=== PATIENT | female | born 1955 | race Caucasian/White ===

== ENCOUNTER 2020-07-13 15:10 | Outpatient (REF) | payer OTHER, SELFPAY ==
[2020-07-13 16:44] LABS: MANUAL DIFF FLAG NO
[2020-07-13 16:54] LABS: Basophils Absolute Auto 0.1 X10*3/uL (0.0-0.2); Basophils Percent Auto 0.7 % (0-2); Eosinophils Absolute Auto 0.3 X10*3/uL (0.0-0.4); Eosinophils Percent Auto 3.1 % (0-4); Hematocrit 51.4 % (37-47); Hemoglobin 16.3 g/dl (12.0-16.0); Imm Gran Abs Auto 0.27 X10*3/uL (0.00-0.03); Imm Gran Pct Auto 3.1 % (0.0-0.4); Lymphocytes Absolute Auto 1.6 X10*3/uL (1.2-4.9); Lymphocytes Percent Auto 18.7 % (20-40); Mean Corpuscular HGB Conc 31.7 g/dl (31.0-35.0); Mean Corpuscular Volume 94.7 fL (80-98); Mean Platelet Volume 9.8 fL (9.4-12.3); Monocytes Absolute Auto 0.6 X10*3/uL (0.1-1.2); Monocytes Percent Auto 6.7 % (2-11); Neutrophils Absolute Auto 5.9 X10*3/uL (2.0-8.3); Neutrophils Percent Auto 67.7 % (45-73); Platelet Count 364 X10*3/uL (160-400); Red Blood Count 5.43 X10*6/uL (4.20-5.50); Red Cell Distribution Width 14.1 % (11.0-16.0); White Blood Count 8.7 X10*3/uL (4.8-10.8)
[2020-07-13 17:00] LABS: D Dimer 756 NG/ML
[2020-07-13 17:34] LABS: B Type Natriuretic Peptide 173 pg/mL (<100)
[2020-07-13 17:51] LABS: Erythrocyte Sedimentation Rate 2 MM/HR (0-20)
[2020-07-14 09:21] LABS: Immunoglobulin E 57 kU/L (<OR=114)
[2020-07-15 04:41] LABS: SARS COV2 IgG Negative (Negative)
== END 2020-07-13 15:11 | disposition home or self-care (01) ==
LOC: HO.LAB 15:10
PROVIDERS: PCP Family Medicine; Visit Provider Hospitalist
DX: J18.9 Pneumonia, unspecified organism (principal); J96.01 Acute respiratory failure with hypoxia; J45.40 Moderate persistent asthma, uncomplicated; Z20.822 Contact with and (suspected) exposure to COVID-19
CPT/HCPCS: 36415; 82785; 83880; 84484; 85025; 85379; 85652; 86769

== ENCOUNTER 2020-07-14 19:09 | Emergency (ER) | payer OTHER, SELFPAY ==
--- NOTE | ~2020-07-14 | CT_ITS ---
EXAMINATION: CT ANGIOGRAM OF THE CHEST WITH AND WITHOUT CONTRAST (CT PULMONARY ANGIOGRAM FOR PE) CLINICAL INFORMATION: Reason for Exam Shortness of breath elevated D-dimer COMPARISON: None TECHNIQUE: Prior to contrast administration, noncontrast localization images were obtained. Subsequently, multidetector volumetric imaging was performed from the thoracic inlet to below the diaphragms following the administration of 71 mL Omnipaque 350 intravenous contrast. No contrast reaction reported Sagittal, coronal, and MIP oblique sagittal reformatted images were obtained on the CT workstation, uploaded to PACS, and reviewed. This CT examination was performed using dose optimization techniques as appropriate, variously including the following: *Automated exposure control *Adjustment of mA and/or kV according to patient size (this includes techniques or standardized protocols for targeted exams where dose is matched to indication/reason for exam; i.e. extremities or head) *Use of iterative reconstruction technique Total exam dose-length product 447 mGy-cm FINDINGS: QUALITY OF STUDY/CONTRAST BOLUS: Satisfactory. PULMONARY ARTERIES: No central or segmental pulmonary emboli. THORACIC AORTA: No aneurysm or dissection. LUNG: Somewhat diffuse nonspecific groundglass changes are present in the lungs. Bandlike atelectasis/infiltrate is present at the right lung base (7:223). Left lower lobe patchy consolidation is present (7:290). Some small nodular densities are seen none larger than 6 mm (right lower lobe 7:175 and 234) PLEURA: No pleural effusion or pneumothorax. MEDIASTINUM: Normal heart size. Coronary calcifications are present. No pericardial effusion. No hilar or mediastinal lymphadenopathy. No evidence of septal bowing or right heart strain. CHEST WALL/AXILLA: No axillary or internal mammary lymphadenopathy. OSSEOUS STRUCTURES: No acute or suspicious osseous abnormality. Degenerative changes present in the spine. UPPER ABDOMEN: Unremarkable. No reflux of contrast into the hepatic veins to suggest elevated right heart pressures. CT/CT angio chest PE protocol IMPRESSION: 1. No evidence of pulmonary emboli. 2. Nonspecific groundglass changes in the lungs with bilateral lower lobe infiltrates/atelectasis. VTE: negative
[2020-07-14 19:45] VITALS: BP 158/69; PULSE 67; RESP 20; TEMP 36.4; O2SAT 96; BMI 55.3
--- NOTE | 2020-07-14 21:10 | ED.GENADULT ---
HPI - General Adult General Chief complaint: General Medical Stated complaint: abnormal labs Time Seen by Provider: 07/14/20 21:10 Source: patient Mode of arrival: ambulatory Limitations: no limitations History of Present Illness HPI narrative: Patient's history of COPD ex-smoker sent by her automation application engineer for elevated D-dimer for CTA chest as outpatient but patient missed the appointment and came to the ER. Patient admitted 2 weeks ago at [facility] for hypoxia 85% on walking was treated for bronchitis and COPD and was given Augmentin. Labs done yesterday showed troponin of 6 BNP of 173 repeat troponin today is 8.9 D-dimer was 756 patient does have leg swelling without any significant pain Patient complaining of dry cough occasionally with shortness of breath especially on exertion for last few days no chest pain Related Data Home Medications Medication Instructions Recorded Confirmed albuterol sulfate 90 mcg/actuation 2 puff INHALATION Q2-4H PRN 07/13/20 07/13/20 aerosol inhaler atorvastatin 20 mg tablet 20 mg PO DAILY 07/13/20 07/13/20 calcitriol 0.25 mcg capsule 0.25 mcg PO DAILY 07/13/20 07/13/20 cholecalciferol (vitamin D3) 50 50 mcg PO DAILY 07/13/20 07/13/20 mcg (2,000 unit) capsule fexofenadine 180 mg tablet 180 mg PO DAILY 07/13/20 07/13/20 furosemide 20 mg tablet 20 mg PO DAILY 07/13/20 07/13/20 losartan 50 mg tablet 50 mg PO DAILY 07/13/20 07/13/20 mometasone-formoterol HFA 200 2 puff PO BID 07/13/20 07/13/20 mcg-5 mcg/actuation aerosol inhaler prednisone 10 mg tablet 10 mg PO BID 07/13/20 07/13/20 prednisone 5 mg tablet mg PO 07/13/20 07/13/20 umeclidinium 62.5 mcg/actuation 1 inh PO DAILY 07/13/20 07/13/20 blister powder for inhalation Allergies Allergy/AdvReac Type Severity Reaction Status Date / Time amoxicillin [From Augmentin] Allergy Severe Rash Verified 07/13/20 15:59 ciprofloxacin [From Cipro] Allergy Severe Cramping Verified 07/13/20 15:59 clavulanic acid Allergy Severe Rash Verified 07/13/20 15:59 [From Augmentin] levofloxacin [Levaquin] Allergy Severe Cramping Verified 07/13/20 15:59 moxifloxacin [From Avelox] Allergy Severe Cramping Verified 07/13/20 15:59 Penicillins Allergy Severe Rash Verified 07/13/20 15:59 Review of Systems Review of Systems: Constitutional : No Weight loss, No Fever, No Chills ENT/Mouth : No sore throat, No Rhinorrhea Eyes: No Eye Pain, No Swelling Cardiovascular : No Chest Pain, no palpitations Respiratory : No Cough, No Sputum, + shortness of breath Gastrointestinal : no Nausea, No Vomiting, No Diarrhea, No abdominal Pain, no black stools Genitourinary : No Dysuria, No Urinary Frequency Musculoskeletal : No joint pain, No Myalgias, No Joint Swelling Skin : No Skin Lesions, No rash Neuro : No Weakness, No Numbness, No Dizziness, No Headache Psych : No Anxiety/Panic, No Depression Heme/Lymph: No Bruising, No Lymphadenopathy Endocrine : No Polyuria, No Polydipsia All other systems reviewed and are negative [facility] Past Medical History Medical History Asthma Pneumonia Social History Social History Smoking Status: Former smoker Tobacco Type: Cigarette Advance Directives: No Advance Directives Information Provided: Yes Patient : No Physical Exam Vital Signs: Vital Signs: Last Vital Signs Temp 97.7 F 07/14/20 22:49 Pulse 72 07/14/20 22:49 Resp 18 07/14/20 22:49 BP 148/71 H 07/14/20 22:49 Pulse Ox 94 07/14/20 22:49 Body Mass Index 55.3 Appearance: Alert. Oriented X3. No acute distress. Obese Eyes: PERRLA, No Nystagmus ENT: Pharynx normal. Oral Mucosa moist Neck: Normal inspection. Neck supple. CVS: Normal heart rate and rhythm. Pulses normal. Respiratory: No respiratory distress. Equal air entry bilateral, no wheezing/rales/rhonchi prolonged expiration Abdomen: Soft and nontender. Bowel sounds are present, no mass palpable, no CVA tenderness Skin: Skin warm and dry. Normal skin color. Normal skin turgor. Extremities: 2+ lower extremity edema. No calf tenderness Neuro: Oriented X 3. No motor deficit. No sensory deficit.No cerebellar signs , cranial nerves II-XII intact Medical Decision Making MDM Narrative Medical decision making narrative: Patient with chronic COPD with elevated D-dimer will check CTA chest to rule out PE for chronic shortness of breath Patient's CT chest negative for PE will discharge patient home Lab Data Lab results reviewed: Yes I reviewed the patient's lab results. Result diagrams: 07/14/20 21:07/14/20 21: Labs: Lab Results 07/14/20 07/14/20 07/14/20 Range/Units 21:22 21: 21:22 WBC 9.6 (4.8-10.8) X10*3/uL RBC 5.17 (4.20-5.50) X10*6/uL Hgb 15.6 (12.0-16.0) g/dl Hct 49.0 H (37-47) % MCV 94.8 (80-98) fL MCH 30.2 (27.0-33.0) pg MCHC 31.8 (31.0-35.0) g/dl RDW 14.3 (11.0-16.0) % Plt Count 331 (160-400) X10*3/uL MPV 9.7 (9.4-12.3) fL Immature Gran % (Auto) 1.2 H (0.0-0.4) % Neut % (Auto) 68.1 (45-73) % Lymph % (Auto) 20.9 (20-40) % Dillon % (Auto) 6.8 (2-11) % Eos % (Auto) 2.6 (0-4) % Baso % (Auto) 0.4 (0-2) % Lymph # (Auto) 2.0 (1.2-4.9) X10*3/uL Dillon # (Auto) 0.7 (0.1-1.2) X10*3/uL Eos # (Auto) 0.3 (0.0-0.4) X10*3/uL Baso # (Auto) 0.0 (0.0-0.2) X10*3/uL Abs Immat Gran (auto) 0.12 H (0.00-0.03) X10*3/uL Absolute Neuts (auto) 6.6 (2.0-8.3) X10*3/uL Absolute Nucleated RBC 0.000 (0.0-0.012) X10*3/uL Nucleated RBC % (auto) 0.0 (0.0-0.2) /100WBC PT 10.7 L (10.8-13.0) SEC INR 0.9 (0.9-1.1) APTT 26.8 (24.1-38.0) SEC Sodium 141 (135-145) mmol/L Potassium 4.6 (3.3-5.1) mmol/L Chloride 102 (96-108) mmol/L Carbon Dioxide 30 H (22-29) mmol/L Anion Gap 14 (12-20) BUN 27 H (9-16) mg/dL Creatinine 1.24 (0.5-1.4) mg/dL Estim Creat Clear Calc 63.7 Estimated GFR 44 Random Glucose 233 H (60-115) mg/dL Calcium 9.3 (8.4-10.2) mg/dL Troponin I High Sens (<3.5-17.0) ng/L Urine Color Urine Appearance Urine pH (5.0-8.0) Ur Specific [place] (1.005-1.025) Urine Protein (NEG-TRACE) MG/DL Urine Glucose (UA) (NEG) MG/DL Urine Ketones (NEG) MG/DL Urine Blood (NEG) Urine Nitrite (NEG) Ur Leukocyte Esterase (NEG) Urine RBC (0) /HPF Urine WBC (0-4) /HPF Ur Squamous Epith Cells /LPF Urine Bacteria /LPF 07/14/20 07/14/20 Range/Units 21:22 21:56 WBC (4.8-10.8) X10*3/uL RBC (4.20-5.50) X10*6/uL Hgb (12.0-16.0) g/dl Hct (37-47) % MCV (80-98) fL MCH (27.0-33.0) pg MCHC (31.0-35.0) g/dl RDW (11.0-16.0) % Plt Count (160-400) X10*3/uL MPV (9.4-12.3) fL Immature Gran % (Auto) (0.0-0.4) % Neut % (Auto) (45-73) % Lymph % (Auto) (20-40) % Dillon % (Auto) (2-11) % Eos % (Auto) (0-4) % Baso % (Auto) (0-2) % Lymph # (Auto) (1.2-4.9) X10*3/uL Dillon # (Auto) (0.1-1.2) X10*3/uL Eos # (Auto) (0.0-0.4) X10*3/uL Baso # (Auto) (0.0-0.2) X10*3/uL Abs Immat Gran (auto) (0.00-0.03) X10*3/uL Absolute Neuts (auto) (2.0-8.3) X10*3/uL Absolute Nucleated RBC (0.0-0.012) X10*3/uL Nucleated RBC % (auto) (0.0-0.2) /100WBC PT (10.8-13.0) SEC INR (0.9-1.1) APTT (24.1-38.0) SEC Sodium (135-145) mmol/L Potassium (3.3-5.1) mmol/L Chloride (96-108) mmol/L Carbon Dioxide (22-29) mmol/L Anion Gap (12-20) BUN (9-16) mg/dL Creatinine (0.5-1.4) mg/dL Estim Creat Clear Calc Estimated GFR Random Glucose (60-115) mg/dL Calcium (8.4-10.2) mg/dL Troponin I High Sens 8.9 (<3.5-17.0) ng/L Urine Color YELLOW Urine Appearance CLEAR Urine pH 5.5 (5.0-8.0) Ur Specific Nor[place] >= 1.030 H (1.005-1.025) Urine Protein NEG (NEG-TRACE) MG/DL Urine Glucose (UA) 100 H (NEG) MG/DL Urine Ketones NEG (NEG) MG/DL Urine Blood NEG (NEG) Urine Nitrite NEG (NEG) Ur Leukocyte Esterase NEG (NEG) Urine RBC 0 (0) /HPF Urine WBC 0 (0-4) /HPF Ur Squamous Epith Cells 1+ /LPF Urine Bacteria TRACE /LPF ECG Data Attestation: I personally reviewed and interpreted this ECG as follows: Interpretation: Normal sinus rhythm heart rate 86 beats per minute with frequent PVCs left anterior fascicular block no acute ischemic changes normal intervals Discharge Plan Discharge Clinical Impression: Blood D-dimer assay positive Patient Disposition: Home, Self-Care Instructions: COPD (Chronic Obstructive Pulmonary Disease) (ED) Additional Instructions: Follow-up with your automation application engineer Your CT scan chest is negative for blood clots Prescriptions: No Action prednisone 5 mg tablet PO RF: 0 furosemide 20 mg tablet 20 mg PO DAILY RF: 0 prednisone 10 mg tablet 10 mg PO BID RF: 0 atorvastatin 20 mg tablet 20 mg PO DAILY RF: 0 albuterol sulfate 90 mcg/actuation HFA aerosol inhaler 2 puff inhalation Q2-4H PRNRF: 0 Incruse Ellipta 62.5 mcg/actuation blister with device 1 inh PO DAILY RF: 0 Dulera 200-5 mcg/actuation HFA aerosol inhaler 2 puff PO BID RF: 0 losartan 50 mg tablet 50 mg PO DAILY RF: 0 calcitriol 0.25 mcg capsule 0.25 mcg PO DAILY RF: 0 cholecalciferol (vitamin D3) 50 mcg (2,000 unit) capsule 50 mcg PO DAILY RF: 0 fexofenadine [Reina Allergy] 180 mg tablet 180 mg PO DAILY RF: 0 Interventions: ED Discharge Assessment Last Done: 07/14/20 23:37 Discharge Date/Time: 07/14/20 23:39
--- NOTE | 2020-07-14 21:13 | ECG_ITS ---
Test Reason : SOB Blood Pressure : / mmHG Vent. Rate : 086 BPM Atrial Rate : 086 BPM P-R Int : 120 ms QRS Dur : 096 ms QT Int : 384 ms P-R-T Axes : 058 -68 047 degrees QTc Int : 459 ms Sinus rhythm with frequent Premature ventricular complexes Biatrial enlargement Abnormal ECG When compared with ECG of 22-MAY-2008 09:39, Premature ventricular complexes are now Present Referred By: Alberto Roche Electronically Signed By:WILIAN LAMA
[2020-07-14 21:27] LABS: MANUAL DIFF FLAG NO
[2020-07-14 21:29] LABS: Basophils Percent Auto 0.4 % (0-2); Eosinophils Absolute Auto 0.3 X10*3/uL (0.0-0.4); Eosinophils Percent Auto 2.6 % (0-4); Hemoglobin 15.6 g/dl (12.0-16.0); Imm Gran Abs Auto 0.12 X10*3/uL (0.00-0.03); Imm Gran Pct Auto 1.2 % (0.0-0.4); Lymphocytes Percent Auto 20.9 % (20-40); Mean Corpuscular HGB Conc 31.8 g/dl (31.0-35.0); Mean Corpuscular Hemoglobin 30.2 pg (27.0-33.0); Mean Corpuscular Volume 94.8 fL (80-98); Mean Platelet Volume 9.7 fL (9.4-12.3); Monocytes Absolute Auto 0.7 X10*3/uL (0.1-1.2); Monocytes Percent Auto 6.8 % (2-11); Neutrophils Absolute Auto 6.6 X10*3/uL (2.0-8.3); Neutrophils Percent Auto 68.1 % (45-73); Platelet Count 331 X10*3/uL (160-400); Red Blood Count 5.17 X10*6/uL (4.20-5.50); Red Cell Distribution Width 14.3 % (11.0-16.0); White Blood Count 9.6 X10*3/uL (4.8-10.8)
[2020-07-14 21:34] LABS: INTERNATIONAL NORM RATIO 0.9 (0.9-1.1); Prothrombin Time 10.7 SEC (10.8-13.0)
--- NOTE | 2020-07-14 21:36 | PC.NURSE ---
Patient out of bed to bathroom, urine specimen collected and sent for analysis. EKG being obtained at this time by LORETTA Carrera. aware. IV access established in right AC. Awaiting bloodwork results prior to CT scan. Pt reports I have a GFR of 50%, and my last Creatinine was 1.2 which is good for me. I've never had issues with IV dye before . aware.
[2020-07-14 21:37] LABS: Partial Thromboplastin Time 26.8 SEC (24.1-38.0)
[2020-07-14 21:57] LABS: Anion Gap 14 (12-20); Blood Urea Nitrogen 27 mg/dL (9-16); Calcium 9.3 mg/dL (8.4-10.2); Carbon Dioxide 30 mmol/L (22-29); Chloride 102 mmol/L (96-108); Creatinine Clr Calc Pharmacy 63.7; Estimated Glomerular Filt Rate 44; Glucose Random 233 mg/dL (60-115); Potassium 4.6 mmol/L (3.3-5.1); Sodium 141 mmol/L (135-145)
[2020-07-14 22:02] LABS: Appearance Urine CLEAR; Color Urine YELLOW; Glucose Urine UA 100 MG/DL (NEG); Leukocyte Esterase Urine NEG (NEG); Nitrite Urine NEG (NEG); PH 5.5 (5.0-8.0); Specific Gravity - Urine >= 1.030 (1.005-1.025); Urine Blood NEG (NEG); Urine Ketones NEG (NEG); Urine Protein NEG (NEG-TRACE)
[2020-07-14 22:04] LABS: Troponin-I High Sensitivity 8.9 ng/L (<3.5-17.0)
[2020-07-14 22:08] LABS: Bacteria Urine TRACE /LPF; RBC Urine 0 /HPF (0); Squamous Epithelial Cell Urine 1+ /LPF; WBC Urine 0 /HPF (0-4)
[2020-07-14] MEDS: iohexoL 350 MG/ML 100 ML INFUS..BTL IV (22:34)
[2020-07-14 22:49] VITALS: BP 148/71; PULSE 72; RESP 18; TEMP 36.5; O2SAT 94
== END 2020-07-14 23:39 | disposition home or self-care (01) ==
PROVIDERS: Emergency Provider Internal Medicine; PCP Family Medicine
DX: J44.9 Chronic obstructive pulmonary disease, unspecified (principal); R79.89 Other specified abnormal findings of blood chemistry; F17.210 Nicotine dependence, cigarettes, uncomplicated; Z71.6 Tobacco abuse counseling; Z79.899 Other long term (current) drug therapy
CPT/HCPCS: 36415; 71275; 80048; 81001; 84484; 85025; 85610; 85730; 93005; 99283; Q9967

== ENCOUNTER → 2020-08-06 14:56 | Outpatient (BNVA) | payer OTHER, SELFPAY | PROVIDERS: PCP Family Medicine; Visit Provider Hospitalist ==

== ENCOUNTER 2020-11-25 08:00 | Outpatient (REF) | payer OTHER, SELFPAY ==
--- NOTE | ~2020-11-25 | FL_ITS ---
EXAMINATION: FL BARIUM SWALLOW CLINICAL INFORMATION: Gastroesophageal reflux disease without esophagitis. COMPARISON: CT chest 07/14/2020. TECHNIQUE: Barium swallow examination is performed using fluoroscopic evaluation in addition to multiple fluoroscopic spot views. The patient is imaged both upright and prone and using both thick and thin sulfate along with effervescent granules. Fluoroscopy time: 1 minute 6 seconds. DAP: 32.059 Gycm2 Images: 47 FINDINGS: Following oral administration of thick barium and barium-coated turkey in upright view, there is normal propagation of bolus from the oral cavity, pharynx and esophagus into stomach without any evidence of obstruction, narrowing or stricture. On placing patient in right lateral decubitus lying view and oral administration of thin barium, there is good opacification of the entire expanded esophagus without any intraluminal filling defect. There is no reflux seen at this time. However, there is a small sliding hiatal hernia visualized. Visualized stomach is unremarkable. There are surgical dion in the right upper quadrant from previous cholecystectomy. FL/FL barium swallow IMPRESSION: Small hiatal hernia. No gastroesophageal reflux could be demonstrated at this time. The esophagus is otherwise unremarkable.
[2020-11-25 08:54] LABS: D Dimer < 200 NG/ML
== END 2020-11-25 08:01 | disposition home or self-care (01) ==
LOC: HO.XRAY 08:00
PROVIDERS: PCP Family Medicine; Visit Provider Hospitalist
DX: K21.9 Gastro-esophageal reflux disease without esophagitis (principal); R79.89 Other specified abnormal findings of blood chemistry; J18.9 Pneumonia, unspecified organism
CPT/HCPCS: 36415; 74220; 85379

== ENCOUNTER → 2020-12-07 15:25 | Outpatient (BNVA) | payer OTHER, SELFPAY | PROVIDERS: PCP Family Medicine; Visit Provider Hospitalist ==

== ENCOUNTER 2022-11-03 15:40 | Outpatient (AMB) | payer OTHER, SELFPAY ==
[2022-11-03 15:44] VITALS: PULSE 90; O2SAT 94; BMI 55.8
--- NOTE | 2022-11-03 15:44 | MHC.OFFVIS ---
Intake Vital Signs 11/03/22 15:44 Height 5 ft 3 in Weight 315 lb 4.176 oz BMI 55.8 Pulse 90 Pulse Source Pulse Oximeter Pulse Oximetry (%) 94 Oxygen Delivery Method Room Air Intake Visit Reasons: CT Chest Results/Pulmonary Nodules Wooden Frame Builder Required: No Allergies amoxicillin [From Augmentin] Allergy (Severe, Verified 11/03/22 15:46) Rash ciprofloxacin [From Cipro] Allergy (Severe, Verified 11/03/22 15:46) Cramping clavulanic acid [From Augmentin] Allergy (Severe, Verified 11/03/22 15:46) Rash levofloxacin [Levaquin] Allergy (Severe, Verified 11/03/22 15:46) Cramping moxifloxacin [From Avelox] Allergy (Severe, Verified 11/03/22 15:46) Cramping Penicillins Allergy (Severe, Verified 11/03/22 15:46) Rash contrast dye Allergy (Severe, Uncoded 11/03/22 15:46) Blister HPI HPI Comments History of Present Illness Details The patient is a 67-year-old woman with a known history of asthma and significant allergies who was apparently in her usual state health until approximately 3 weeks ago when she suddenly developed shortness of breath while on to supermarket carrying some groceries. In addition to that she felt a low-grade temperature. She had been coughing but nonproductive. Denies chest pain. She was evaluated at the [facility] ED. I do not have the documentation at this time. In part of the workup she did have a CT scan of the chest PE protocol which demonstrated but appears to be a consolidation in the left lower lobe. There he was also found to be hypoxic and she required oxygen. She had a brief stay at [facility]. It is not clear if she received any antibiotics. She has numerous allergies. Ultimately she was discharged with a plan that she was going to start Augmentin as an outpatient. She took 3 doses of Augmentin developed a severe rash. But, not involving her palms no her mucous membranes. She was evaluated by her primary care doctor and also her white goods appliance tech. She was placed on a slow prednisone taper because of the severe rash. The rest is slowly getting better. She was then switched to Bactrim but she did not take can not because she still had the rash. And ultimately she was given a Z-Yariel for 5 days and she feels a little better from a cough standpoint and she has not had any more high temperatures. At no point did she have a temperature greater than 100. The patient has ultimately been discharged on oxygen. It is not clear if she had an ABG but the patient does state that her CO2 was normal. In the office we did undergo a 6 minutes walk test in the patient did desaturate down to 88% with activity suggesting that she still does need the oxygen supplementation with activity. Her symptoms initially were not consistent with pneumonia in the description on the CT scan they appear to be suggesting pneumonia but is not definitive based on their description. Patient has significant lower extremity edema and also has significant tachycardia during the 6 minutes walk test so therefore pulmonary vascular conditions need to be considered. Therefore she will have additional blood work today. Addendum: I did review her blood work and she did have a significantly elevated D-dimer above 700 which is very concerning. Patient is high risk for thromboembolic disease. In addition to that her brain atretic peptide is elevated which could be a negative prognostic finding is some but has thromboembolic disease but also get me that she is volume overloaded. Patient is already on diuretics. 08/06/2020 the patient is here for pulmonary follow-up visit. Since we last spoke she did undergo a CTA due to the fact that her D-dimer was significantly elevated. She did not have any evidence of any thromboembolic disease, however, she had bilateral lower lobe pneumonias. It appears to have progressed from her previous CT scan when she was at [facility] only demonstrating a left basilar infiltrate. This process likely an atypical bacteria organisms. Initially she was on doxycycline and then switched over to Augmentin briefly. Then she went in completed a course of azithromycin. There was a question of a penicillin allergy. However, it appears that the allergy was more to the contrast dye. She did see her white goods appliance tech and did require prolonged course of prednisone to treat the contrast induced allergic skin reaction which resulted in vesicles of her skin. But, not involving her mucous membranes. The patient did require oxygen supplementation during the last visit. At this point the patient will continue to have the oxygen until further evaluation. Patient is to use the oxygen with activity. 11/03/2022 The patient is here for a pulmonary follow-up visit. Overall the patient continues to do very well. She denies any significant shortness of breath. She has no longer using the oxygen. She continues to use her respiratory therapy. In the meantime she needs to maintain a reflux diet. The patient also continue to work with her weight management. The CT scan demonstrated stable findings. no new nodules. Overall, unchanged when compared to 2020. Continue current respiratory regimen. [facility] Medical History (Updated 01/15/22 @ 21:42 by Archie Coreas MD) Asthma Pneumonia Pulmonary nodule Social History (Updated 09/09/21 @ 15:42 by JESENIA Melchor) Patient Tobacco Use Status: Current everyday Tobacco user Tobacco use type: Cigarette Years Smoked: 17 Years Review of Systems Const Denies night sweats ENT Denies change in voice, Denies lip swelling, Denies mouth pain, Reports nasal congestion, Reports nasal discharge and Denies tongue swelling Card Denies chest pain, Reports leg edema, Denies palpitations, Reports dyspnea on exertion and Denies paroxysmal nocturnal dyspnea Resp Reports cough, Denies pain on inspiration, Reports dyspnea on exertion and Denies wheezing GI Denies abdominal pain Musc Denies no additional complaints Skin/Breast Denies rash Neuro Denies Neuro-related abnormal movements Psych Denies no additional complaints Endo Denies palpitations Colby/Lymph Denies easy bleeding and Denies lymphadenopathy Aller/Immun Denies lip swelling, Denies tongue swelling and Denies wheezing Physical Exam Vital Signs: Last Vital Signs Pulse 90 11/03/22 15:44 Pulse Ox 94 11/03/22 15:44 Oxygen Delivery Method Room Air 11/03/22 15:44 BMI result Body Mass Index 55.8 Const General: alert Eyes Pupils: Equal, round and reactive pupils present Neck Neck: Yes normal visual inspection, Yes full ROM and Yes no lymphadenopathy Chest Chest palpation & inspection: normal inspection of the chest Resp Auscultation: no crackles, no rales, no rhonchi, no wheezes and diminished lung sounds Cardio Rate: regular rate and tachycardic Rhythm: regular rhythm Heart sounds: S1 normal heart sound present and S2 normal heart sound present GI Palpation (GI): Soft to palpation and nontender Auscultation: normal bowel sounds Neuro Cranial nerves: Yes Equal, round and reactive pupils present Extrem General: No cyanosis and Yes edema Left lower extremity: lower leg Details: erythema Location: of the mid lower leg, tenderness and warmth Assessment & Plan Assessment & Plan (1) Asthma: Code(s): J45.909 - Unspecified asthma, uncomplicated Qualifiers: Asthma complication type: uncomplicated Asthma persistence: persistent Asthma severity: moderate Qualified Code(s): J45.40 - Moderate persistent asthma, uncomplicated (2) Pulmonary nodule: Code(s): R91.1 - Solitary pulmonary nodule Plan Continue Wixela and incruse stopped singulair [place] as needed diuresis as tolerated hold off on additional CT chest F/U 12 months Coding Level of Care Code Est Pt Level 4 (15183) Diagnoses Asthma J45.40 Asthma complication type: uncomplicated Asthma persistence: persistent Asthma severity: moderate Pulmonary nodule R91.1 Time Spent (min) 17
== END 2022-11-03 16:09 | disposition home or self-care (01) ==
PROVIDERS: PCP Family Medicine; Visit Provider Hospitalist
DX: J45.40 Moderate persistent asthma, uncomplicated (principal); R91.1 Solitary pulmonary nodule
CPT/HCPCS: 99214

== ENCOUNTER → 2022-11-03 15:40 | Outpatient (BNVA) | payer OTHER, SELFPAY | PROVIDERS: PCP Family Medicine; Visit Provider Hospitalist ==

== ENCOUNTER 2023-01-10 12:46 | Outpatient (RCR) | payer OTHER, SELFPAY | END 2023-02-07 17:00 | disposition home or self-care (01) | LOC: HO.WCC 12:46 | PROVIDERS: PCP Family Medicine; Visit Provider Surgery | DX: L97.822 Non-pressure chronic ulcer of other part of left lower leg with fat layer exposed (principal); I12.9 Hypertensive chronic kidney disease with stage 1 through stage 4 chronic kidney disease, or unspecified chronic kidney disease; N18.9 Chronic kidney disease, unspecified; Z87.891 Personal history of nicotine dependence; Z86.73 Personal history of transient ischemic attack (TIA), and cerebral infarction without residual deficits; Z91.81 History of falling; Z79.899 Other long term (current) drug therapy; Z79.82 Long term (current) use of aspirin | CPT/HCPCS: 11042; 99212 ==

== ENCOUNTER 2023-09-03 08:25 | Outpatient (AMB) | payer OTHER, SELFPAY ==
--- NOTE | 2023-09-02 19:29 | A.OFFVIS_ITS ---
Vital Signs 09/03/23 08:28 Height 5 ft 3 in Weight 305 lb 5.443 oz BMI 54.1 BP 102/70 Blood Pressure Location Rt radial Position Sitting Pulse 82 Pulse Source Pulse Oximeter Pulse Oximetry (%) 91 L Oxygen Delivery Method Nasal Cannula Intake Visit Reasons: acute respiratory failure Allergies amoxicillin [From Augmentin] Allergy (Severe, Verified 09/03/23 08:35) Rash ciprofloxacin [From Cipro] Allergy (Severe, Verified 09/03/23 08:35) Cramping clavulanic acid [From Augmentin] Allergy (Severe, Verified 09/03/23 08:35) Rash levofloxacin [Levaquin] Allergy (Severe, Verified 09/03/23 08:35) Cramping moxifloxacin [From Avelox] Allergy (Severe, Verified 09/03/23 08:35) Cramping Penicillins Allergy (Severe, Verified 09/03/23 08:35) Rash doxycycline Allergy (Intermediate, Verified 09/03/23 08:35) Rash contrast dye Allergy (Severe, Uncoded 09/03/23 08:35) Blister HPI HPI acute respiratory failure : Details: Tracee is a pleasant 68 year old female, former smoker with 17 pack year history, quit 2008 with underlying asthma, pulmonary nodules, environmental allergies and h/o acute respiratory failure secondary to pneumonia. She is followed by Dr. Coreas and was last evaluated 10/2022. At baseline, she is well controlled on Wixela, Incruse and albuterol MDI. Today she presents for a hospital follow up. She was admitted to [facility] last week Sunday to Sunday for chest tightness, dyspnea and productive cough. Unfortunately, ED records not available today. She reportedly tested positive for parainfluenzae virus, treated with IV antibiotics, IV solumedrol, and duonebs. She reports CXR unremarkable for PNA. Upon discharge she reportedly received a 10 day course of azithromycin and prednisone taper. She reports significant improvements since being discharge. She continues with dyspnea on exertion and chest tightness. She will complete antibiotics later this week and prednisone next week. She was also prescribed a flutter valve which she has been using with good effect. She contacted the office to be evaluated for a conserving device and this will be scheduled . She has been using 1L at rest and 2L with exertion maintaining an oxygen saturation on 92-94%. [facility] Medical History (Updated 01/15/22 @ 21:42 by Archie Coreas MD) Pulmonary nodule Asthma Pneumonia Social History (Updated 09/03/23 @ 08:34 by Crissy Garner CMA) Patient Tobacco Use Status: Former Tobacco user Tobacco use type: Cigarette Years Smoked: 17 Years Review of Systems Const Denies chills, Denies excessive sweating, Denies fever(s), Denies headache(s) and Denies night sweats Eyes Denies dry eyes, Denies irritation and Denies itchy eyes ENT Reports Normal hearing present, Denies headache(s), Denies nasal congestion, Denies nasal discharge, Denies post nasal drip and Denies sore throat Card Denies chest pain, Denies chest pain at rest, Denies chest pain with activity, Denies claudication, Denies leg edema, Denies dyspnea, Reports dyspnea on exertion, Denies orthopnea and Denies paroxysmal nocturnal dyspnea Resp Denies chest congestion, Denies cough, Denies hemoptysis, Denies excessive phlegm production, Denies pain on inspiration, Denies pain with cough, Denies dyspnea, Reports dyspnea on exertion, Denies stridor and Denies wheezing Musc Denies myalgias Neuro Reports Normal hearing present and Denies headache(s) Endo Denies excessive sweating Colby/Lymph Denies lymphadenopathy Aller/Immun Denies itchy eyes, Denies seasonal rhinorrhea and Denies wheezing Physical Exam Vital Signs: Last Vital Signs Pulse 82 09/03/23 08:28 BP 102/70 09/03/23 08:28 Pulse Ox 91 L 09/03/23 08:28 Oxygen Delivery Method Nasal Cannula 09/03/23 08:28 BMI result Body Mass Index 54.1 Const Other: using 1L O2 NC General: cooperative, healthy appearing, comfortable, no acute distress, well developed and alert Nutritional Appearance: obese Orientation/consciousness: patient oriented x3 Limitations: no limitations HEENT Head: Yes normal to inspection, Yes normocephalic and Yes atraumatic Ears: hearing grossly normal bilaterally and external ears normal Eyes General: appearance normal, both eyes and all related structures Eyelids: Yes eyelids normal Sclerae: sclerae normal EOM: EOMs intact bilaterally Neck Neck: Yes normal visual inspection and Yes no lymphadenopathy Lymphatic: no lymphadenopathy noted Chest Chest palpation & inspection: normal inspection of the chest Resp Effort & Inspection: normal respiratory effort, able to speak in complete sentences, no audible wheezes, no cough, no stridor, not tachypneic, no tripod positioning and no use of accessory muscles Auscultation: rhonchi, no wheezes and diminished lung sounds Cardio Jugular venous distension: no JVD Rate: regular rate Rhythm: regular rhythm Skin Other: warm, dry General skin exam: no rashes or lesions noted Neuro General: patient oriented x3 Cranial nerves: Yes Normal hearing present Cognition (Neuro): normal cognition Gait exam (Neuro): Normal gait present Extrem General: Yes normal to inspection, Yes capillary refill normal, Yes no clubbing, cyanosis or edema and Yes no pedal edema Psych Appearance: grossly normal and well kempt Speech and movement: Normal speech and movement present and Clear speech present Affect: normal affect Attitude: cooperative Thought process: Normal thought process present Thought content: Normal thought content present Insight: Good insight present (Psych) Judgement: Good judgement present (Psych) Assessment & Plan Assessment & Plan (1) Asthma: Code(s): J45.909 - Unspecified asthma, uncomplicated Category: Medical Qualifiers: Asthma complication type: uncomplicated Asthma persistence: persistent Asthma severity: moderate Qualified Code(s): J45.40 - Moderate persistent asthma, uncomplicated (2) Pulmonary nodule: Code(s): R91.1 - Solitary pulmonary nodule Category: Medical Plan Tracee presents for hospital discharge follow up from [facility] for worsening dyspnea. Will reach out to [facility] to obtain records. Patient currently on prednisone taper and azithromycin x 10 days with significant improvements overall. Advised to continue current respiratory regimen including nebs/flutter valve and complete antibiotics/prednisone. She is aware if symptoms worsen to call the office. She will schedule appointment for evaluation for conserving device this . All questions were answered and patient is in agreement of plan. Will follow up for regularly scheduled appointment with Dr. Coreas or sooner if needed. Coding Level of Care Code Est Pt Level 4 (79468) Diagnoses Moderate persistent asthma without complication J45.40 Asthma complication type: uncomplicated Asthma persistence: persistent Asthma severity: moderate Pulmonary nodule R91.1
[2023-09-03 08:28] VITALS: BP 102/70; PULSE 82; O2SAT 91; BMI 54.1
== END 2023-09-03 09:11 | disposition home or self-care (01) ==
PROVIDERS: PCP Family Medicine; Visit Provider Nurse Practitioner Family
DX: J45.40 Moderate persistent asthma, uncomplicated (principal); R91.1 Solitary pulmonary nodule
CPT/HCPCS: 99214

== ENCOUNTER → 2023-09-03 08:25 | Outpatient (BNVA) | payer OTHER, SELFPAY | PROVIDERS: PCP Family Medicine; Visit Provider Nurse Practitioner Family ==

== ENCOUNTER 2023-10-11 15:34 | Outpatient (AMB) | payer OTHER, SELFPAY ==
--- NOTE | 2023-10-11 15:39 | A.OFFVIS_ITS ---
Vital Signs 10/11/23 15:40 Height 5 ft 3 in Weight 305 lb 5.443 oz BMI 54.1 Pulse 86 Pulse Source Pulse Oximeter Pulse Oximetry (%) 93 Oxygen Delivery Method Room Air Intake Visit Reasons: pneumonia Nursing Services Manager Required: No Allergies amoxicillin [From Augmentin] Allergy (Severe, Verified 10/11/23 15:41) Rash ciprofloxacin [From Cipro] Allergy (Severe, Verified 10/11/23 15:41) Cramping clavulanic acid [From Augmentin] Allergy (Severe, Verified 10/11/23 15:41) Rash levofloxacin [Levaquin] Allergy (Severe, Verified 10/11/23 15:41) Cramping moxifloxacin [From Avelox] Allergy (Severe, Verified 10/11/23 15:41) Cramping Penicillins Allergy (Severe, Verified 10/11/23 15:41) Rash doxycycline Allergy (Intermediate, Verified 10/11/23 15:41) Rash contrast dye Allergy (Severe, Uncoded 10/11/23 15:41) Blister HPI Comments Details: The patient is a 68-year-old woman with a known history of asthma and significant allergies who was apparently in her usual state health until a pproximately 3 weeks ago when she suddenly developed shortness of breath while on to supermarket carrying some groceries. In addition to that she felt a low- grade temperature. She had been coughing but nonproductive. Denies chest pain. She was evaluated at the [facility] ED. I do not have the documentation at this time. In part of the workup she did have a CT scan of the chest PE protocol which demonstrated but appears to be a consolidation in the left lower lobe. There he was also found to be hypoxic and she required oxygen. She had a brief stay at [facility]. It is not clear if she received any antibiotics. She has numerous allergies. Ultimately she was discharged with a plan that she was going to start Augmentin as an outpatient. She took 3 doses of Augmentin developed a severe rash. But, not involving her palms no her mucous membranes. She was evaluated by her primary care doctor and also her refinery operator. She was placed on a slow prednisone taper because of the severe rash. The rest is slowly getting better. She was then switched to Bactrim but she did not take can not because she still had the rash. And ultimately she was given a Z-Yariel for 5 days and she feels a little better from a cough standpoint and she has not had any more high temperatures. At no point did she have a temperature greater than 100. The patient has ultimately been discharged on ox ygen. It is not clear if she had an ABG but the patient does state that her CO2 was normal. In the office we did undergo a 6 minutes walk test in the patient did desaturate down to 88% with activity suggesting that she still does need the oxygen supplementation with activity. Her symptoms initially were not consistent with pneumonia in the description on the CT scan they appear to be suggesting pneumonia but is not definitive based on their description. Patient has significant lower extremity edema and also has significant tachycardia during the 6 minutes walk test so therefore pulmonary vascular conditions need to be considered. Therefore she will have additional blood work today. Addendum: I did review her blood work and she did have a significantly elevated D-dimer above 700 which is very concerning. Patient is high risk for thromboembolic disease. In addition to that her brain atretic peptide is elevated which could be a negative prognostic finding is some but has thromboe mbolic disease but also get me that she is volume overloaded. Patient is already on diuretics. 08/06/2020 the patient is here for pulmonary follow-up visit. Since we last spoke she did undergo a CTA due to the fact that her D-dimer was significantly elevated. She did not have any evidence of any thromboembolic disease, however, she had bilateral lower lobe pneumonias. It appears to have progressed from her previous CT scan when she was at [facility] only demonstrating a left basilar infiltrate. This process likely an atypical bacteria organisms. Initially she was on doxycycline and then switched over to Augmentin briefly. Then she went in completed a course of azithromycin. There was a question of a penicillin allergy. However, it appears that the allergy was more to the contrast dye. She did see her refinery operator and did require prolonged course of prednisone to treat the contrast induced allergic skin reaction which resulted in vesicles of her skin. But, not involving her mucous membranes. The patient did require oxygen supplementation during the last visit. At this point the patient will continue to have the oxygen until further evaluation. Patient is to use the oxygen with activity. 11/03/2022 The patient is here for a pulmonary follow-up visit. Overall the patient continues to do very well. She denies any significant shortness of breath. She has no longer using the oxygen. She continues to use her respiratory therapy. In the meantime she needs to maintain a reflux diet. The patient also continue to work with her weight management. The CT scan demonstrated stable findings. no new nodules. Overall, unchanged when compared to 2020. Continue current respiratory regimen. 10/11/2023 the patient is here for pulmonary follow-up visit. She did have a sick visit in our office in August. Subsequently after that she ended up admitted to [facility]. I do not have the details as I do not have the discharge summer. She did have additional imaging while she was there. Now the patient is been stable. She has a better baseline. She is no longer using oxygen. She still has a cough which is productive in nature. Yellowish in color. Denies any fevers or chills. Denies any chest tightness. Seems to be more consistent with chronic bronchitis. Will go and started on azithromycin 3 times a week to treat her chronic bronchitis at this time. I am hopeful that she feels better. Will request the imaging studies in the discharge summary from [facility] to see was already done so we can avoid redundancy. When she starts the azithromycin should get an EKG to make sure that her QT is within normal limits. After 6-8 weeks he can stop the azithromycin. The patient also has underlying pulmonary nodules. Last CT scan was back in the spring. The patient did have a 1 cm pulmonary nodule. Therefore, she should have a close follow-up CT scan. Will have her get a CT scan sometime in 02/29/2024. [facility] Medical History (Updated 10/11/23 @ 22:55 by Archie Coreas MD) Chronic bronchitis Pulmonary nodule Asthma Pneumonia Social History (Updated 09/03/23 @ 08:34 by Crissy Garner CMA) Patient Tobacco Use Status: Former Tobacco user Tobacco use type: Cigarette Years Smoked: 17 Years Review of Systems Const Denies night sweats ENT Denies change in voice, Denies lip swelling, Denies mouth pain, Reports nasal congestion, Reports nasal discharge and Denies tongue swelling Card Denies chest pain, Reports leg edema, Denies palpitations, Reports dyspnea on exertion and Denies paroxysmal nocturnal dyspnea Resp Reports chest congestion, Reports cough, Denies pain on inspiration, Reports dyspnea on exertion and Denies wheezing GI Denies abdominal pain Musc Denies no additional complaints Skin/Breast Denies rash Neuro Denies Neuro-related abnormal movements Psych Denies no additional complaints Endo Denies palpitations Colby/Lymph Denies easy bleeding and Denies lymphadenopathy Aller/Immun Denies lip swelling, Denies tongue swelling and Denies wheezing Physical Exam Vital Signs: Last Vital Signs Pulse 86 10/11/23 15:40 Pulse Ox 93 10/11/23 15:40 Oxygen Delivery Method Room Air 10/11/23 15:40 BMI result Body Mass Index 54.1 Const General: alert Eyes Pupils: Equal, round and reactive pupils present Neck Neck: Yes normal visual inspection, Yes full ROM and Yes no lymphadenopathy Chest Chest palpation & inspection: normal inspection of the chest Resp Auscultation: no crackles, no rales, no rhonchi, no wheezes and diminished lung sounds Cardio Rate: regular rate and tachycardic Rhythm: regular rhythm Heart sounds: S1 normal heart sound present and S2 normal heart sound present GI Palpation (GI): Soft to palpation and nontender Auscultation: normal bowel sounds Neuro Cranial nerves: Yes Equal, round and reactive pupils present Extrem General: No cyanosis and Yes edema Left lower extremity: lower leg Details: erythema Location: of the mid lower leg, tenderness and warmth Assessment & Plan Assessment & Plan (1) Pulmonary nodule: Code(s): R91.1 - Solitary pulmonary nodule Category: Medical (2) Asthma: Code(s): J45.909 - Unspecified asthma, uncomplicated Category: Medical Qualifiers: Asthma complication type: uncomplicated Asthma persistence: persistent Asthma severity: moderate Qualified Code(s): J45.40 - Moderate persistent asthma, uncomplicated (3) Chronic bronchitis: Code(s): J42 - Unspecified chronic bronchitis Category: Medical Qualifiers: Chronic bronchitis type: mucopurulent Qualified Code(s): J41.1 - Mucopurulent chronic bronchitis Plan Continue Wixela and incruse stopped singulair [place] as needed diuresis as tolerated start Azithromycin 6-8 weeks EKG once on Macrolide therapy CT chest Feb 2024 to assess >1cm pulmonary nodule F/U Feb 2024 Orders: Orders CT chest wo IV con 02/18/24 R91.1 - Solitary pulmonary nodule ECG 12 lead EKG Today J44.9 - Chronic obstructive pulmonary disease, unspecified Medications: New azithromycin Take 1 tablet on Sunday/Sunday/Sunday 250 mg PO 3XW 12 tabs 2RF 28 days K21.9 - Gastro-esophageal reflux disease without esophagitis Coding Level of Care Code Est Pt Level 4 (80901) Complex EM visit Add On G2211 Diagnoses Pulmonary nodule R91.1 Moderate persistent asthma without complication J45.40 Asthma complication type: uncomplicated Asthma persistence: persistent Asthma severity: moderate Mucopurulent chronic bronchitis J41.1 Chronic bronchitis type: mucopurulent Time Spent (min) 18
[2023-10-11 15:40] VITALS: PULSE 86; O2SAT 93; BMI 54.1
== END 2023-10-11 16:18 | disposition home or self-care (01) ==
PROVIDERS: PCP Family Medicine; Visit Provider Hospitalist
DX: R91.1 Solitary pulmonary nodule (principal); J45.40 Moderate persistent asthma, uncomplicated; J41.1 Mucopurulent chronic bronchitis
CPT/HCPCS: 99214

== ENCOUNTER → 2023-10-11 15:34 | Outpatient (BNVA) | payer OTHER, SELFPAY | PROVIDERS: PCP Family Medicine; Visit Provider Hospitalist ==

== ENCOUNTER 2023-12-14 15:36 | Outpatient (AMB) | payer OTHER, SELFPAY ==
[2023-12-14 15:37] VITALS: BP 118/72; PULSE 106; O2SAT 90; BMI 54.3
--- NOTE | 2023-12-14 15:37 | MHC.OFFVIS ---
Vital Signs 12/14/23 15:37 Height 5 ft 3 in Weight 306 lb 6 oz BMI 54.3 BP 118/72 Blood Pressure Location Rt radial Position Sitting Pulse 106 H Pulse Source Pulse Oximeter Pulse Oximetry (%) 90 L Oxygen Delivery Method Room Air Intake Visit Reasons: [facility] [place] [facility] follow up Allergies amoxicillin [From Augmentin] Allergy (Severe, Verified 12/14/23 15:45) Rash ciprofloxacin [From Cipro] Allergy (Severe, Verified 12/14/23 15:45) Cramping clavulanic acid [From Augmentin] Allergy (Severe, Verified 12/14/23 15:45) Rash levofloxacin [Levaquin] Allergy (Severe, Verified 12/14/23 15:45) Cramping moxifloxacin [From Avelox] Allergy (Severe, Verified 12/14/23 15:45) Cramping Penicillins Allergy (Severe, Verified 12/14/23 15:45) Rash doxycycline Allergy (Intermediate, Verified 12/14/23 15:45) Rash contrast dye Allergy (Severe, Uncoded 12/14/23 15:45) Blister HPI HPI [facility] [place] [facility] follow up: Details: Tracee is a pleasant 68 year old female, former smoker with 17 pack year history, quit 2008 with underlying asthma, pulmonary nodules, environmental allergies and h/o acute respiratory failure secondary to pneumonia. She is followed by Dr. Coreas and was last evaluated 10/2022. At baseline, she is well controlled on Wixela, Incruse and albuterol MDI. Today she presents for a hospital follow up. She was admitted to [facility] 12/07-12/10 for an asthma exacerbation, d/c which prednisone. She is currently being treated for chronic cough with suppressive azithromycin however continues with dyspnea on exertion and productive cough with green sputum. [facility] Medical History (Updated 12/14/23 @ 16:06 by Lisandra Shrestha NP) Chronic bronchitis Pulmonary nodule Asthma Pneumonia Social History Patient Tobacco Use Status: Former Tobacco user Tobacco use type: Cigarette Years Smoked: 17 Years Review of Systems Const Denies chills, Denies excessive sweating, Denies fever(s), Denies headache(s) and Denies night sweats Eyes Denies dry eyes, Denies irritation and Denies itchy eyes ENT Reports Normal hearing present, Denies headache(s), Denies nasal congestion, Denies nasal discharge, Denies post nasal drip and Denies sore throat Card Denies chest pain, Denies chest pain at rest, Denies chest pain with activity, Denies claudication, Denies leg edema, Reports dyspnea on exertion, Denies orthopnea and Denies paroxysmal nocturnal dyspnea Resp Denies chest congestion, Denies hemoptysis, Denies pain on inspiration, Denies pain with cough, Reports dyspnea on exertion, Denies stridor and Denies wheezing Musc Denies myalgias Neuro Reports Normal hearing present and Denies headache(s) Endo Denies excessive sweating Colby/Lymph Denies lymphadenopathy Aller/Immun Denies itchy eyes, Denies seasonal rhinorrhea and Denies wheezing Physical Exam Vital Signs: Last Vital Signs Pulse 106 H 12/14/23 15:37 BP 118/72 12/14/23 15:37 Pulse Ox 90 L 12/14/23 15:37 Oxygen Delivery Method Room Air 12/14/23 15:37 BMI result Body Mass Index 54.3 Const General: cooperative, healthy appearing, comfortable, no acute distress, well developed and alert Nutritional Appearance: obese Orientation/consciousness: patient oriented x3 Limitations: no limitations HEENT Head: Yes normal to inspection, Yes normocephalic and Yes atraumatic Ears: hearing grossly normal bilaterally and external ears normal Eyes General: appearance normal, both eyes and all related structures Eyelids: Yes eyelids normal Sclerae: sclerae normal EOM: EOMs intact bilaterally Neck Neck: Yes normal visual inspection and Yes no lymphadenopathy Lymphatic: no lymphadenopathy noted Chest Chest palpation & inspection: normal inspection of the chest Resp Effort & Inspection: normal respiratory effort, able to speak in complete sentences, no audible wheezes, no stridor, not tachypneic, no tripod positioning and no use of accessory muscles Auscultation: rhonchi, no wheezes and diminished lung sounds Cardio Jugular venous distension: no JVD Rate: regular rate Rhythm: regular rhythm Skin Other: warm, dry General skin exam: no rashes or lesions noted Neuro General: patient oriented x3 Cranial nerves: Yes Normal hearing present Cognition (Neuro): normal cognition Gait exam (Neuro): Normal gait present Extrem General: Yes normal to inspection, Yes capillary refill normal, Yes no clubbing, cyanosis or edema and Yes no pedal edema Psych Appearance: grossly normal and well kempt Speech and movement: Normal speech and movement present and Clear speech present Affect: normal affect Attitude: cooperative Thought process: Normal thought process present Thought content: Normal thought content present Insight: Good insight present (Psych) Judgement: Good judgement present (Psych) Assessment & Plan Assessment & Plan (1) Asthma: Code(s): J45.909 - Unspecified asthma, uncomplicated Category: Medical Qualifiers: Asthma severity: moderate Asthma persistence: persistent Asthma complication type: uncomplicated Qualified Code(s): J45.40 - Moderate persistent asthma, uncomplicated (2) Pulmonary nodule: Code(s): R91.1 - Solitary pulmonary nodule Category: Medical Plan On exam Tracee with rhonchi, currently on prednisone, advised to complete taper. Will send for sputum given persistent cough and multiple antibiotics allergies. Will repeat CXR in 4-6 weeks to assess for resolution of bibasilar atelectasis. She is aware if symptoms worsen to call the office. Will call patient with results of sputum. All questions were answered and patient is in agreement of plan. Will follow up for regularly scheduled appointment with Dr. Coreas or sooner if needed. Orders: Orders XR chest 2V 12/14/23 J41.1 - Mucopurulent chronic bronchitis Sputum Cult + Gram stain 12/14/23 R05.9 - Cough, unspecified Medications: Discontinued azithromycin Discontinued Reason: Doctor's Order 500 mg PO DAILY 5 days 5 tabs 0RF Coding Level of Care Code Est Pt Level 4 (15016) Complex EM visit Add On G2211 Diagnoses Moderate persistent asthma without complication J45.40 Asthma severity: moderate Asthma persistence: persistent Asthma complication type: uncomplicated Pulmonary nodule R91.1
== END 2023-12-14 16:12 | disposition home or self-care (01) ==
PROVIDERS: PCP Family Medicine; Visit Provider Nurse Practitioner Family
DX: J45.40 Moderate persistent asthma, uncomplicated (principal); R91.1 Solitary pulmonary nodule
CPT/HCPCS: 99214

== ENCOUNTER 2023-12-14 15:36 | Outpatient (REF) | payer OTHER, SELFPAY | END 2023-12-14 15:37 | disposition home or self-care (01) | LOC: HO.LNP 15:36 | PROVIDERS: PCP Family Medicine; Visit Provider Nurse Practitioner Family | DX: R05.9 Cough, unspecified (principal) | CPT/HCPCS: 87070; 87077; 87185; 87205 ==

== ENCOUNTER 2024-02-21 12:11 | Outpatient (AMB) | payer OTHER, SELFPAY ==
--- NOTE | 2024-02-21 13:22 | AM.OFFWIN_ITS ---
Intake Vital Signs 02/21/24 13:28 Weight 307 lb BP 124/80 Blood Pressure Location Rt brachial Position Sitting Pulse 92 Pulse Source Pulse Oximeter Temp 98.3 F Temp Source Oral Pulse Oximetry (%) 93 Oxygen Delivery Method Room Air Intake Visit Reasons: EP SOB, low oxygen Intake Note: Patient here for SOB,fatigue, cough which started Sunday. Patient Tobacco Use Status: Former Tobacco user Allergies amoxicillin [From Augmentin] Allergy (Severe, Verified 02/21/24 13:30) Rash ciprofloxacin [From Cipro] Allergy (Severe, Verified 02/21/24 13:30) Cramping clavulanic acid [From Augmentin] Allergy (Severe, Verified 02/21/24 13:30) Rash levofloxacin [Levaquin] Allergy (Severe, Verified 02/21/24 13:30) Cramping moxifloxacin [From Avelox] Allergy (Severe, Verified 02/21/24 13:30) Cramping Penicillins Allergy (Severe, Verified 02/21/24 13:30) Rash doxycycline Allergy (Intermediate, Verified 02/21/24 13:30) Rash contrast dye Allergy (Severe, Uncoded 02/21/24 13:30) Blister Do you need a note to return to daycare/school/sports/work: No HPI EP SOB, low oxygen HPI Details This note is constructed using voice recognition software. While every effort has been made to ensure accuracy, round kiln drawer errors may have been included. The patient is a 68 year old female who presents to the clinic today with dyspnea and hypoxia at home. She has not the history of asthma, and recent hospitalization following pneumonia. She follows a adult nurse practitioner, who she contacted 1st, and advised her to be evaluated. Her adult nurse practitioner suggested that she have a chest x-ray. She notes that she has a chronic cough at baseline, and has been there for almost a year. She is a former smoker, having quit more than 10 years ago. She denies fever, chills, body aches. She reports that the dyspnea is primarily with activity. She checks her pulse oximetry at home, and it registered as as low as 87, though she notes a baseline of 93%. She reports symptom onset started with rhinorrhea. [facility] Medical History (Updated 12/14/23 @ 16:06 by Lisandra Shrestha NP) Chronic bronchitis Pulmonary nodule Asthma Pneumonia Social History Patient Tobacco Use Status: Former Tobacco user Tobacco use type: Cigarette Years Smoked: 17 Years Review of Systems Const All systems reviewed & are unremarkable except as noted in HPI and below Physical Exam Vital Signs: Last Vital Signs Temp 98.3 F 02/21/24 13:28 Pulse 92 02/21/24 13:28 BP 124/80 02/21/24 13:28 Pulse Ox 93 02/21/24 13:28 Oxygen Delivery Method Room Air 02/21/24 13:28 Const General: cooperative, healthy appearing, comfortable and no acute distress Orientation/consciousness: patient oriented x3 Limitations: no limitations HEENT Head: Yes normal to inspection Ears: hearing grossly normal bilaterally, external ears normal and TM's normal bilaterally General nose exam: Normal external nose present, Normal nares present and No nasal discharge present Face and sinus: Yes normal facial exam and Yes sinuses nontender Mouth: Normal oral and palatal mucosa present and moist mucous membranes Throat: Yes tonsils normal, Yes uvula midline and Yes cobblestoning Eyes General: appearance normal, both eyes and all related structures Neck Neck: Yes normal visual inspection Resp Other: No decrease in pulse oximetry on ambulation with patient. Effort & Inspection: normal respiratory effort, able to speak in complete sentences, Actively coughing, no respiratory distress, not tachypneic, no tripod positioning and no use of accessory muscles Auscultation: clear to auscultation bilaterally and wheezes (clear with cough) Cardio Jugular venous distension: no JVD Rate: regular rate Rhythm: regular rhythm Heart sounds: S1 normal heart sound present, S2 normal heart sound present, no click, no gallops, no murmurs and no rubs Skin General skin exam: no rashes or lesions noted, elasticity normal and turgor normal Neuro General: patient oriented x3 Extrem General: Yes normal to inspection and Yes no clubbing, cyanosis or edema Assessment & Plan Assessment & Plan (1) Pneumonia: Code(s): J18.9 - Pneumonia, unspecified organism Qualifiers: Pneumonia type: due to unspecified organism Laterality: left Lung location: lower lobe of lung Qualified Code(s): J18.9 - Pneumonia, unspecified organism Plan: Chest x-ray suggestive of pneumonia in the right. Curb 65 score is 1. Dual coverage antimicrobial selected based on allergy profile and previous tolerability of the day of medication. Patient has follow up appointment with pulmonology next week, advised her to keep it. Advised patient to present to the emergency room should she develop any sudden acute worsening of symptoms. Plan See above for full details and plan. Orders: Orders XR chest 2V Today R06.00 - Dyspnea, unspecified Medications: New clarithromycin 500 mg PO BID 20 tabs 0RF cefpodoxime must administer with a meal/food 200 mg PO BID 20 tabs 0RF Coding Level of Care Code Est Pt Level 4 (81693) Diagnoses Pneumonia of left lower lobe due to infectious organism J18.9 Pneumonia type: due to unspecified organism Laterality: left Lung location: lower lobe of lung Time Spent (min) 30
[2024-02-21 13:28] VITALS: BP 124/80; PULSE 92; TEMP 36.8; O2SAT 93
== END 2024-02-21 14:54 | disposition home or self-care (01) ==
PROVIDERS: PCP Family Medicine; Visit Provider Registered Nurse
DX: J18.9 Pneumonia, unspecified organism (principal)

== ENCOUNTER 2024-02-29 15:26 | Outpatient (AMB) | payer OTHER, SELFPAY ==
[2024-02-29 15:32] VITALS: BP 132/80; PULSE 91; O2SAT 90; BMI 53.9
--- NOTE | 2024-02-29 15:32 | A.OFFVIS_ITS ---
Vital Signs 02/29/24 15:32 Height 5 ft 3 in Weight 304 lb 3.806 oz BMI 53.9 BP 132/80 Blood Pressure Location Lt brachial Position Sitting Pulse 91 Pulse Source Pulse Oximeter Pulse Oximetry (%) 90 L Oxygen Delivery Method Room Air Intake Visit Reasons: Pneumonia Community Health Education Coordinator Required: No Allergies amoxicillin [From Augmentin] Allergy (Severe, Verified 02/29/24 15:36) Rash ciprofloxacin [From Cipro] Allergy (Severe, Verified 02/29/24 15:36) Cramping clavulanic acid [From Augmentin] Allergy (Severe, Verified 02/29/24 15:36) Rash levofloxacin [Levaquin] Allergy (Severe, Verified 02/29/24 15:36) Cramping moxifloxacin [From Avelox] Allergy (Severe, Verified 02/29/24 15:36) Cramping Penicillins Allergy (Severe, Verified 02/29/24 15:36) Rash doxycycline Allergy (Intermediate, Verified 02/29/24 15:36) Rash contrast dye Allergy (Severe, Uncoded 02/29/24 15:36) Blister HPI Comments Details: The patient is a 68-year-old woman with a known history of asthma and significant allergies who was apparently in her usual state health until approximately 3 weeks ago when she suddenly developed shortness of breath while on to supermarket carrying some groceries. In addition to that she felt a low- grade temperature. She had been coughing but nonproductive. Denies chest pain. She was evaluated at the [facility] ED. I do not have the documentation at this time. In part of the workup she did have a CT scan of the chest PE protocol which demonstrated but appears to be a consolidation in the left lower lobe. There he was also found to be hypoxic and she required oxygen. She had a brief stay at [facility]. It is not clear if she received any antibiotics. She has numerous allergies. Ultimately she was discharged with a plan that she was going to start Augmentin as an outpatient. She took 3 doses of Augmentin developed a severe rash. But, not involving her palms no her mucous membranes. She was evaluated by her primary care doctor and also her nuclear fuels reclamation engineer. She was placed on a slow prednisone taper because of the severe rash. The rest is slowly getting better. She was then switched to Bactrim but she did not take can not because she still had the rash. And ultimately she was given a Z-Yariel for 5 days and she feels a little better from a cough standpoint and she has not had any more high temperatures. At no point did she have a temperature greater than 100. The patient has ultimately been discharged on oxygen. It is not clear if she had an ABG but the patient does state that her CO2 was normal. In the office we did undergo a 6 minutes walk test in the patient did desaturate down to 88% with activity suggesting that she still does need the oxygen supplementation with activity. Her symptoms initially were not consistent with pneumonia in the description on the CT scan they appear to be suggesting pneumonia but is not definitive based on their description. Patient has significant lower extremity edema and also has significant tachycardia during the 6 minutes walk test so therefore pulmonary vascular conditions need to be considered. Therefore she will have additional blood work today. Addendum: I did review her blood work and she did have a significantly elevated D-dimer above 700 which is very concerning. Patient is high risk for thr omboembolic disease. In addition to that her brain atretic peptide is elevated which could be a negative prognostic finding is some but has thromboembolic disease but also get me that she is volume overloaded. Patient is already on diuretics. 08/06/2020 the patient is here for pulmonary follow-up visit. Since we last spoke she did undergo a CTA due to the fact that her D-dimer was significantly elevated. She did not have any evidence of any thromboembolic disease, however, she had bilateral lower lobe pneumonias. It appears to have progressed from her previous CT scan when she was at [facility] only demonstrating a left basilar infiltrate. This process likely an atypical bacteria organisms. Initially she was on doxycycline and then switched over to Augmentin briefly. Then she went in completed a course of azithromycin. There was a question of a penicillin allergy. However, it appears that the allergy was more to the contrast dye. She did see her nuclear fuels reclamation engineer and did require prolonged course of prednisone to treat the contrast induced allergic skin reaction which resulted in vesicles of her skin. But, not involving her mucous membranes. The patient did require oxygen supplementation during the last visit. At this point the patient will continue to have the oxygen until further evaluation. Patient is to use the oxygen with activity. 11/03/2022 The patient is here for a pulmonary follow-up visit. Overall the patient continues to do very well. She denies any significant shortness of breath. She has no longer using the oxygen. She continues to use her respiratory therapy. In the meantime she needs to maintain a reflux diet. The patient also continue to work with her weight management. The CT scan demonstrated stable findings. no new nodules. Overall, unchanged when compared to 2020. Continue current respiratory regimen. 10/11/2023 the patient is here for pulmonary follow-up visit. She did have a sick visit in our office in August. Subsequently after that she ended up admitted to [facility]. I do not have the details as I do not have the discharge summer. She did have additional imaging while she was there. Now the patient is been stable. She has a better baseline. She is no longer using oxygen. She still has a cough which is productive in nature. Yellowish in color. Denies any fevers or chills. Denies any chest tightness. Seems to be more consistent with chronic bronchitis. Will go and started on azithromycin 3 times a week to treat her chronic bronchitis at this time. I am hopeful that she feels better. Will request the imaging studies in the discharge summary from [facility] to see was already done so we can avoid redundancy. When she starts the azithromycin should get an EKG to make sure that her QT is within normal limits. After 6-8 weeks he can stop the azithromycin. The patient also has underlying pulmonary nodules. Last CT scan was back in the spring. The patient did have a 1 cm pulmonary nodule. Therefore, she should have a close follow-up CT scan. Will have her get a CT scan sometime in 02/29/2024. 02/29/2024 the patient is here for a pulmonary follow-up visit. She has been sickly lately. She has had multiple bouts of pneumonia. Primarily in the right lower lobe area. She just completed a course of cefpodoxime and also azithromycin back in December and she had grown strep pneumo at that point. Then she was vaccinated after that. She came became sick again with worsening respiratory symptoms coughing wheezing. And she went to an urgent care she is our nurse practitioner she was given additional antibiotics. Partially improving her symptoms. Although she feels like she is getting does significant congestion and wheezing. The patient will need some prednisone. In addition to that we did look at her x-ray demonstrating the infrahilar opacity and this is very typical of her previous CT scans. I did recommend bronchoscopy. At this point she is going on a cruise and she would like to avoid any procedures until after the cruise. Therefore, will go ahead and started on clindamycin since she has a lot of allergies. She can start low-dose prednisone to see this provides some relief. In addition to that we talked about potentially microaspiration that could result in recurrent infections. Her c 40a crew chief already checked her immune system and she was not a candidate for immune therapy per report of the patient. However, will go ahead and repeat her CT scan sometime before her cruise and then after the cruise she we can follow-up with me and we can review and see if we need to perform a bronchoscopy. With the now she is going to continue her current respiratory therapy. [facility] Medical History (Updated 12/14/23 @ 16:06 by Lisandra Shrestha NP) Chronic bronchitis Pulmonary nodule Asthma Pneumonia Social History Patient Tobacco Use Status: Former Tobacco user Tobacco use type: Cigarette Years Smoked: 17 Years Review of Systems Const Denies night sweats ENT Denies change in voice, Denies lip swelling, Denies mouth pain, Reports nasal congestion, Reports nasal discharge and Denies tongue swelling Card Denies chest pain, Reports leg edema, Denies palpitations, Reports dyspnea on exertion and Denies paroxysmal nocturnal dyspnea Resp Reports chest congestion, Reports cough, Denies pain on inspiration, Reports dyspnea on exertion and Reports wheezing GI Denies abdominal pain Musc Denies no additional complaints Skin/Breast Denies rash Neuro Denies Neuro-related abnormal movements Psych Denies no additional complaints Endo Denies palpitations Colby/Lymph Denies easy bleeding and Denies lymphadenopathy Aller/Immun Denies lip swelling, Denies tongue swelling and Reports wheezing Physical Exam Vital Signs: Last Vital Signs Pulse 91 02/29/24 15:32 BP 132/80 02/29/24 15:32 Pulse Ox 90 L 02/29/24 15:32 Oxygen Delivery Method Room Air 02/29/24 15:32 BMI result Body Mass Index 53.9 Const General: alert Eyes Pupils: Equal, round and reactive pupils present Neck Neck: Yes normal visual inspection, Yes full ROM and Yes no lymphadenopathy Chest Chest palpation & inspection: normal inspection of the chest Resp Auscultation: no crackles, no rales, rhonchi, no wheezes and diminished lung sounds Cardio Rate: regular rate and tachycardic Rhythm: regular rhythm Heart sounds: S1 normal heart sound present and S2 normal heart sound present GI Palpation (GI): Soft to palpation and nontender Auscultation: normal bowel sounds Neuro Cranial nerves: Yes Equal, round and reactive pupils present Extrem General: No cyanosis and Yes edema Left lower extremity: lower leg Details: erythema Location: of the mid lower leg, tenderness and warmth Assessment & Plan Assessment & Plan (1) Pneumonia: Code(s): J18.9 - Pneumonia, unspecified organism Category: Medical Qualifiers: Laterality: left Lung location: lower lobe of lung Pneumonia type: due to unspecified organism Qualified Code(s): J18.9 - Pneumonia, unspecified organism (2) Pulmonary nodule: Code(s): R91.1 - Solitary pulmonary nodule Category: Medical (3) Asthma: Code(s): J45.909 - Unspecified asthma, uncomplicated Category: Medical Qualifiers: Asthma severity: moderate Asthma persistence: persistent Asthma complication type: uncomplicated Qualified Code(s): J45.40 - Moderate persistent asthma, uncomplicated (4) Chronic bronchitis: Code(s): J42 - Unspecified chronic bronchitis Category: Medical Qualifiers: Chronic bronchitis type: mucopurulent Qualified Code(s): J41.1 - Mucopurulent chronic bronchitis Plan Continue Wixela and incruse stopped singulair [place] as needed diuresis as tolerated start Clindamycin start prednisone taper CT chest in 6-8 weeks consider bonchoscopy to assess recurrent pna. F/U6-8 weeks Orders: Orders CT chest wo IV con 04/07/24 J18.9 - Pneumonia, unspecified organism, R91.1 - Solitary pulmonary nodule Medications: New clindamycin HCl 300 mg PO TID 24 caps 0RF 8 days prednisone PO daily; Take 3 tabs x 4 days, then 2 tabs daily x 4 days, then 1 tab x 4 days to complete. 24 tabs 0RF 12 days Coding Level of Care Code Est Pt Level 4 (12594) Complex EM visit Add On G2211 Diagnoses Pneumonia of left lower lobe due to infectious organism J18.9 Laterality: left Lung location: lower lobe of lung Pneumonia type: due to unspecified organism Pulmonary nodule R91.1 Moderate persistent asthma without complication J45.40 Asthma severity: moderate Asthma persistence: persistent Asthma complication type: uncomplicated Mucopurulent chronic bronchitis J41.1 Chronic bronchitis type: mucopurulent Time Spent (min) 18
== END 2024-02-29 16:02 | disposition home or self-care (01) ==
PROVIDERS: PCP Family Medicine; Visit Provider Hospitalist
DX: J18.9 Pneumonia, unspecified organism (principal); R91.1 Solitary pulmonary nodule; J45.40 Moderate persistent asthma, uncomplicated; J41.1 Mucopurulent chronic bronchitis
CPT/HCPCS: 99214

== ENCOUNTER → 2024-02-29 15:26 | Outpatient (BNVA) | payer OTHER, SELFPAY | PROVIDERS: PCP Family Medicine; Visit Provider Hospitalist | DX: R91.1 Solitary pulmonary nodule (principal); K21.9 Gastro-esophageal reflux disease without esophagitis ==

== ENCOUNTER → 2024-04-25 15:43 | Outpatient (AMB) | payer OTHER, SELFPAY ==
--- NOTE | 2024-04-25 15:44 | A.OFFVIS_ITS ---
Vital Signs 04/25/24 15:45 Height 5 ft 3 in Weight 302 lb 0.533 oz BMI 53.5 BP 110/72 Blood Pressure Location Rt radial Position Sitting Pulse 79 Pulse Source Pulse Oximeter Pulse Oximetry (%) 95 Oxygen Delivery Method Room Air Intake Visit Reasons: pneumonia Allergies amoxicillin [From Augmentin] Allergy (Severe, Verified 04/25/24 15:48) Rash ciprofloxacin [From Cipro] Allergy (Severe, Verified 04/25/24 15:48) Cramping clavulanic acid [From Augmentin] Allergy (Severe, Verified 04/25/24 15:48) Rash levofloxacin [Levaquin] Allergy (Severe, Verified 04/25/24 15:48) Cramping moxifloxacin [From Avelox] Allergy (Severe, Verified 04/25/24 15:48) Cramping Penicillins Allergy (Severe, Verified 04/25/24 15:48) Rash doxycycline Allergy (Intermediate, Verified 04/25/24 15:48) Rash contrast dye Allergy (Severe, Uncoded 04/25/24 15:48) Blister HPI Comments Details: The patient is a 68-year-old woman with a known history of asthma and significant allergies who was apparently in her usual state health until approximately 3 weeks ago when she suddenly developed shortness of breath while on to supermarket carrying some groceries. In addition to that she felt a low- grade temperature. She had been coughing but nonproductive. Denies chest pain. She was evaluated at the [facility] ED. I do not have the documentation at this time. In part of the workup she did have a CT scan of the chest PE protocol which demonstrated but appears to be a consolidation in the left lower lobe. There he was also found to be hypoxic and she required oxygen. She had a brief stay at [facility]. It is not clear if she received any antibiotics. She has numerous allergies. Ultimately she was discharged with a plan that she was going to start Augmentin as an outpatient. She took 3 doses of Augmentin developed a severe rash. But, not involving her palms no her mucous membranes. She was evaluated by her primary care doctor and also her java core developer. She was placed on a slow prednisone taper because of the severe rash. The rest is slowly getting better. She was then switched to Bactrim but she did not take can not because she still had the rash. And ultimately she was given a Z-Yariel for 5 days and she feels a little better from a cough standpoint and she has not had any more high temperatures. At no point did she have a temperature greater than 100. The patient has ultimately been discharged on oxygen. It is not clear if she had an ABG but the patient does state that her CO2 was normal. In the office we did undergo a 6 minutes walk test in the patient did desaturate down to 88% with activity suggesting that she still does need the oxygen supplementation with activity. Her symptoms initially were not consistent with pneumonia in the description on the CT scan they appear to be suggesting pneumonia but is not definitive based on their description. Patient has significant lower extremity edema and also has significant tachycardia during the 6 minutes walk test so therefore pulmonary vascular conditions need to be considered. Therefore she will have additional blood work today. Addendum: I did review her blood work and she did have a significantly elevated D-dimer above 700 which is very concerning. Patient is high risk for thromboembolic disease. In addition to that her brain atretic peptide is elevated which could be a negative prognostic finding is some but has thromboembolic disease but also get me that she is volume overloaded. Patient is already on diuretics. 08/06/2020 the patient is here for pulmonary follow-up visit. Since we last spoke she did undergo a CTA due to the fact that her D-dimer was significantly elevated. She did not have any evidence of any thromboembolic disease, however, she had bilateral lower lobe pneumonias. It appears to have progressed from her previous CT scan when she was at [facility] only demonstrating a left basilar infiltrate. This process likely an atypical bacteria organisms. Initially she was on doxycycline and then switched over to Augmentin briefly. Then she went in completed a course of azithromycin. There was a question of a penicillin allergy. However, it appears that the allergy was more to the contrast dye. She did see her java core developer and did require prolonged course of prednisone to treat the contrast induced allergic skin reaction which resulted in vesicles of her skin. But, not involving her mucous membranes. The patient did require oxygen supplementation during the last visit. At this point the patient will continue to have the oxygen until further evaluation. Patient is to use the oxygen with activity. 11/03/2022 The patient is here for a pulmonary follow-up visit. Overall the patient continues to do very well. She denies any significant shortness of breath. She has no longer using the oxygen. She continues to use her respiratory therapy. In the meantime she needs to maintain a reflux diet. The patient also continue to work with her weight management. The CT scan demonstrated stable findings. no new nodules. Overall, unchanged when compared to 2020. Continue current respiratory regimen. 10/11/2023 the patient is here for pulmonary follow-up visit. She did have a sick visit in our office in August. Subsequently after that she ended up admitted to [facility]. I do not have the details as I do not have the discharge summer. She did have additional imaging while she was there. Now the patient is been stable. She has a better baseline. She is no longer using oxygen. She still has a cough which is productive in nature. Yellowish in color. Denies any fevers or chills. Denies any chest tightness. Seems to be more consistent with chronic bronchitis. Will go and started on azithromycin 3 times a week to treat her chronic bronchitis at this time. I am hopeful that she feels better. Will request the imaging studies in the discharge summary from [facility] to see was already done so we can avoid redundancy. When she starts the azithromycin should get an EKG to make sure that her QT is within normal limits. After 6-8 weeks he can stop the azithromycin. The patient also has underlying pulmonary nodules. Last CT scan was back in the spring. The patient did have a 1 cm pulmonary nodule. Therefore, she should have a close follow-up CT scan. Will have her get a CT scan sometime in 02/29/2024. 02/29/2024 the patient is here for a pulmonary follow-up visit. She has been sickly lately. She has had multiple bouts of pneumonia. Primarily in the right lower lobe area. She just completed a course of cefpodoxime and also azithromycin back in December and she had grown strep pneumo at that point. Then she was vaccinated after that. She came became sick again with worsening respiratory symptoms coughing wheezing. And she went to an urgent care she is our nurse practitioner she was given additional antibiotics. Partially improving her symptoms. Although she feels like she is getting does significant congestion and wheezing. The patient will need some prednisone. In addition to that we did look at her x-ray demonstrating the infrahilar opacity and this is very typical of her previous CT scans. I did recommend bronchoscopy. At this point she is going on a cruise and she would like to avoid any procedures until after the cruise. Therefore, will go ahead and started on clindamycin since she has a lot of allergies. She can start low-dose prednisone to see this provides some relief. In addition to that we talked about potentially microaspiration that could result in recurrent infections. Her electrophysiology tech already checked her immune system and she was not a candidate for immune therapy per report of the patient. However, will go ahead and repeat her CT scan sometime before her cruise and then after the cruise she we can follow-up with me and we can review and see if we need to perform a bronchoscopy. With the now she is going to continue her current respiratory therapy. 04/25/2024 the patient is here for pulmonary follow-up visit. Overall she is doing okay. She still continues to have productive cough. [id number] severity. She did go on her cruise and she did well. The patient did complete a course of antibiotics prior to that trip. She has been off antibiotics since then. She did have a repeat CT scan of the chest which we personally reviewed at rest. Also compared to her previous CT scans from early 2023 and also 2022. She does have a wedge shaped area of scarring with mucus plugging in the posterior segment right upper lobe and also pulmonary nodule in that area. It appears to be about the same. We did talk about considering bronchoscopy. Specially since he is still congested. The last time we sent sputum cultures was positive for strep pneumo and also Haemophilus influenzae. Therefore will be reasonable to perform a bronchoscopy to assess the atelectatic area mucus pl ugging for both therapeutic and diagnostic purposes. We can also get some deep cultures to make sure that she does not have any smoldering infections. She will call whenever she is ready. Will plan for the . Otherwise we can talk about it further when she comes back in 4 months. For now she is going to get blood work done by her powder mill operator. The patient did have a very low titer of her pneumococcal 23 titers she did read vaccinated and we will see the results. She will talk to her java core developer about that. [facility] Medical History (Updated 12/14/23 @ 16:06 by Lisandra Shrestha NP) Chronic bronchitis Pulmonary nodule Asthma Pneumonia Social History Patient Tobacco Use Status: Former Tobacco user Tobacco use type: Cigarette Years Smoked: 17 Years Review of Systems Const Denies night sweats ENT Denies change in voice, Denies lip swelling, Denies mouth pain, Reports nasal congestion, Reports nasal discharge and Denies tongue swelling Card Denies chest pain, Reports leg edema, Denies palpitations, Reports dyspnea on exertion and Denies paroxysmal nocturnal dyspnea Resp Reports chest congestion, Reports cough, Denies pain on inspiration, Reports dyspnea on exertion and Reports wheezing GI Denies abdominal pain Musc Denies no additional complaints Skin/Breast Denies rash Neuro Denies Neuro-related abnormal movements Psych Denies no additional complaints Endo Denies palpitations Colby/Lymph Denies easy bleeding and Denies lymphadenopathy Aller/Immun Denies lip swelling, Denies tongue swelling and Reports wheezing Physical Exam Vital Signs: Last Vital Signs Pulse 79 04/25/24 15:45 BP 110/72 04/25/24 15:45 Pulse Ox 95 04/25/24 15:45 Oxygen Delivery Method Room Air 04/25/24 15:45 BMI result Body Mass Index 53.5 Const General: alert Eyes Pupils: Equal, round and reactive pupils present Neck Neck: Yes normal visual inspection, Yes full ROM and Yes no lymphadenopathy Chest Chest palpation & inspection: normal inspection of the chest Resp Auscultation: no crackles, no rales, no rhonchi, no wheezes and diminished lung sounds Cardio Rate: regular rate and tachycardic Rhythm: regular rhythm Heart sounds: S1 normal heart sound present and S2 normal heart sound present GI Palpation (GI): Soft to palpation and nontender Auscultation: normal bowel sounds Neuro Cranial nerves: Yes Equal, round and reactive pupils present Extrem General: No cyanosis and Yes edema Left lower extremity: lower leg Details: erythema Location: of the mid lower leg, tenderness and warmth Assessment & Plan Assessment & Plan (1) Pneumonia: Code(s): J18.9 - Pneumonia, unspecified organism Category: Medical Qualifiers: Pneumonia type: due to unspecified organism Laterality: left Lung location: lower lobe of lung Qualified Code(s): J18.9 - Pneumonia, unspecified organism (2) Pulmonary nodule: Code(s): R91.1 - Solitary pulmonary nodule Category: Medical (3) Asthma: Code(s): J45.909 - Unspecified asthma, uncomplicated Category: Medical Qualifiers: Asthma severity: moderate Asthma persistence: persistent Asthma complication type: uncomplicated Qualified Code(s): J45.40 - Moderate persistent asthma, uncomplicated (4) Chronic bronchitis: Code(s): J42 - Unspecified chronic bronchitis Category: Medical Qualifiers: Chronic bronchitis type: mucopurulent Qualified Code(s): J41.1 - Mucopurulent chronic bronchitis Plan Continue Wixela and incruse stopped singulair [place] as needed diuresis as tolerated consider bonchoscopy to assess abnormal airspace disease in the RLL F/U 3-4 months Coding Level of Care Code Est Pt Level 4 (13014) Complex EM visit Add On G2211 Diagnoses Pneumonia of left lower lobe due to infectious organism J18.9 Pneumonia type: due to unspecified organism Laterality: left Lung location: lower lobe of lung Pulmonary nodule R91.1 Moderate persistent asthma without complication J45.40 Asthma severity: moderate Asthma persistence: persistent Asthma complication type: uncomplicated Mucopurulent chronic bronchitis J41.1 Chronic bronchitis type: mucopurulent Time Spent (min) 17
[2024-04-25 15:45] VITALS: BP 110/72; PULSE 79; O2SAT 95; BMI 53.5
--- OUTSIDE RECORDS SUMMARY | 2024-04-25 15:45 | XMS_ITS | Clinical Summary ---
Author Organization [facility] Address [address] [place] [address] Care Team Providers Care Manager Of Revenue Name Role Phone Melchor Clark Primary Care Provider Unavailabl e Allergies Active Allergy Reactions Severity Noted Date Comments Avelox 05/09/2016 Ciprofloxacin 05/09/2016 Levofloxacin 02/20/2017 Penicillins 05/09/2016 Apap-Fd&C Blue #1-Oxycodone 02/21/20 17 Hydrocodone-Acetaminophen 02/20/2017 Medications Medication Sig Dispensed Refills Start Date End Date Status fexofenadine 180 MG tablet Take 180 mg by mouth daily. 0 Active Mometasone Furo-Formoterol Fum 200-5 MCG/ACT Aerosol Inhale 2 Puffs into the lungs 2 times daily. 0 Active fluticasone 50 MCG/ACT nasal spray 2 Sprays by Each Nare route daily. 0 Active furosemide (LASIX) 20 MG tablet Take 20 mg by mouth daily. 0 Active Umeclidinium [place] 62.5 MCG/INH AEROSOL POWDER,BREATH ACTIVATED Inhale 1 Puff into the lungs daily. 0 Active montelukast (SINGULAIR) 10 MG tablet Take 10 mg by mouth at bedtime. 0 Active ALBUTEROL SULFATE 108 (90 BASE) MCG/ACT Aero Soln Inhale 2 Puffs into the lungs every 4 hours as needed. 0 Active atorvastatin (LIPITOR) 20 MG tablet Take 20 mg by mouth daily. 0 Active Cholecalciferol (VITAMIN D) 2000 UNITS Tab Take by mouth. 0 Active losartan (COZAAR) 50 MG tablet Take 1.5 Tablets by mouth daily. 0 Active Empagliflozin 25 MG Tab Take by mouth. 0 Active Fluticasone-Salmeterol 500-50 MCG/ACT AEROSOL POWDER,BREATH ACTIVATED Inhale into the lungs. 0 Active Active Problems Problem Noted Date Asthma-COPD overlap syndrome 06/08/2016 Multiple pulmonary nodules 06/08/2016 Diverticulitis of intestine 05/09/2016 Gastroesophageal reflux disease 05/09/19 17 Social History Tobacco Use Types Packs/Day Years Used Date Smoking Tobacco: Former Cigarettes 1 35 Smokeless Tobacco: Never Tobacco Cessation:Counseling Given: Not Answered Sex Assigned at Date Recorded Not on file Job Start Date Occupation Industry Not on file Not on file Not on file Last Filed Vital Signs Vital Sign Reading Time Taken Comments Blood Pressure 133/73 12/29/2022 11:09 AM EDT Pulse 77 12/29/2022 11:09 AM EDT Temperature - - Respiratory Rate 16 10/07/2018 9:38 AM EDT Oxygen Saturation 94% 10/07/2018 9:38 AM EDT Inhaled Oxygen Concentration - - Weight 145.2 kg (320 lb 0.6 oz) 023 11:09 AM EDT Height 160 cm (5' 3 ) 12/29/2022 11:09 AM EDT Body Mass Index 56.69 12/29/2022 11:09 AM EDT Plan of Treatment Health Maintenance Due Date Last Done Comments Covid-19 Vaccine (#1) 01/14/1956 HEPATITIS C SCREENING 1974 DTAP/TDAP/TD (1 - Tdap) 07/15/1975 CHOLESTEROL SCREENING 1976 MAMMOGRAM 1996 COLON CANCER SCREENING 2006 SHINGLES VACCINE (1 of 2) 2006 BONE DENSITY SCREENING 2021 INFLUENZA (#1) 2023 BMI CHECK/ADVISE 03/12/2024 10/07/2018, 03/28/2018, 02/20/2017 PNEUMOCOCCAL VACCINE Completed 06/27/2022 Care Teams Manager Of Revenue Relationship Specialty Start Date End Date Melchor Clark PCP - General 06/11/08
--- OUTSIDE RECORDS SUMMARY | 2024-04-25 15:45 | XMS_ITS | Encounter Summary ---
Author Organization [facility] Address [address] [place] [address] Care Team Providers Care Lockstitch Waistline Joiner Name Role Phone Melchor Clark Primary Care Provider Unavailabl e Encounter Details Date Type Department Care Team Description 02/23/2017 Transfer Records Medical Records [address] [place] [address] Abstract, Provider Social History Tobacco Use Types Packs/Day Years Used Date Smoking Tobacco: Former Cigarettes 1 35 Smokeless Tobacco: Never Sex Assigned at Date Recorded Not on file Job Start Date Occupation Industry Not on file Not on file Not on file documented as of this encounter Plan of Treatment Not on file documented as of this encounter Visit Diagnoses Not on filedocumented in this encounter Care Teams Lockstitch Waistline Joiner Relationship Specialty Start Date End Date Melchor Clark PCP - General 06/11/08 documented as of this encounter
--- OUTSIDE RECORDS SUMMARY | 2024-04-25 15:45 | XMS_ITS | Encounter Summary ---
Author Organization [facility] Address [address] [place] [address] Phone Care Team Providers Care Insulation Engineman Name Role Phone Tal Mcknight MD Primary Care Provider [phone] Encounter Details Date Type Department Care Team (Late st Contact Info) Description 04/22/2024 Orders Only [facility] [address] [facility] [address] [place] [address] Gian Cunha MD [address] [address] Stage 3a chronic kidney disease (HCC); Renal disorder due to type 2 diabetes mellitus <Diabetic nephropathy> (HCC); Hypertensive renal disease; Hyperparathyroidism due to renal insufficiency (HCC) Social History Tobacco Use Types Packs/Day Years Used Date Smoking Tobacco: Former Smokeless Tobacco: Never Alcohol Use Standard Drinks/Week Comments Yes 0 (1 standard drink = 0.6 oz pure alcohol) Alcoholic Drinks/day: Occasional social drink Comments Unknown Sex and Gender Information Value Date Recorded Sex Assigned at Not on file Legal Sex Female 5:01 PM EST Gender Identity Not on file Sexual Orientation Not on file documented as of this encounter Plan of Treatment Upcoming Encounters Date Type Department Care Team (Late st Contact Info) Description 07/28/2024 4:00 PM EDT Office Visit [facility] [address] [address] Gian Cunha MD [id number] [address] documented as of this encounter Visit Diagnoses Diagnosis Stage 3a chronic kidney disease (HCC) Renal disorder due to type 2 diabetes mellitus <Diabetic nephropathy> (HCC) Hypertensive renal disease Hyperparathyroidism due to renal insufficiency (HCC) documented in this encounter Care Teams Insulation Engineman Relationship Specialty Start Date End Date Tal Mcknight MD [facility] [address] [place] [address] PCP - General Family Medicine 10/18/20 documented as of this encounter
--- OUTSIDE RECORDS SUMMARY | 2024-04-25 15:45 | XMS_ITS | Clinical Summary ---
Author Organization [facility] Address [address] [facility] [address] [place] [address] Phone Care Team Providers Care Cinetechnician Name Role Phone Tal Mcknight MD Primary Care Provider [phone]- [phone] Allergies Active Allergy Reactions Criticality Noted Date Comments Ciprofloxacin 05/09/2016 Iodinated Contrast Media 06/06/2021 Hydrocodone-Acetaminophen 02/20/2017 Levofloxacin 02/20/2017 Moxifloxacin 05/09/2016 Other Other (see comments) 02/20/2017 Penicillin G Other (see comments) 08/01/2020 Penicillins 05/09/2016 Oxycodone-Acetaminophen Other (see comments) Medications fexofenadine (HALLE) 180 MG tablet Take 1 tablet by mouth 1 (one) time each day Active fluticasone (FLONASE) 50 MCG/ACT nasal spray Administer 2 sprays into each nostril 2 (two) times a day Active albuterol HFA (PROVENTIL HFA;VENTOLIN HFA) 108 (90 Base) MCG/ACT inhaler 1 puff by Other route Active atorvastatin (LIPITOR) 20 MG tablet Take 1 tablet by mouth 1 (one) time each day Active Cholecalciferol 50 MCG (2000 UT) capsule Take 1 capsule by mouth 1 (one) time each day Active mometasone-form oterol (Dulera) 200-5 MCG/ACT inhaler Inhale 2 puffs in the morning and 2 puffs in the evening. Active montelukast (SINGULAIR) 10 MG tablet Take 1 tablet by mouth 1 (one) time each day Active Umeclidinium Chamisal (Incruse Ellipta) 62.5 MCG/INH aerosol powder Inhale as directed Active EPINEPHrine (EPIPEN) 0.3 MG/0.3ML injection syringe 1 Active Fluticasone-Shekhar meterol (WIXELA INHUB IN) Inhale Active furosemide (LASIX) 40 MG tablet Take 1 tablet (40 mg total) by mouth 1 (one) time each day 90 tablet 3 3 Active Empagliflozin (Jardiance) 25 MG tablet Take 25 mg by mouth 1 (one) time each day in the morning Active losartan (COZAAR) 50 MG tablet Take 1.5 tablets (75 mg total) by mouth 1 (one) time each day 135 tablet 3 4 Active calcitriol (ROCALTROL) 0.5 MCG capsuleIndicati ons:Stage 3a chronic kidney disease (HCC) TAKE ONE CAPSULE BY MOUTH ONCE DAILY 90 capsule 4 Active Active Problems Problem Noted Date Diagnosed Date Stage 3a chronic kidney disease 08/01/2020 Hyperparathyroidism due to renal insufficiency 0 08/01/2020 Hypertensive renal disease 08/01/2020 Renal disorder due to type 2 diabetes mellitus 0 08/01/2020 Asthma-chronic obstructive p ulmonary disease overlap syndrome 06/08/2016 Multiple nodules of lung 06/08/2016 Diverticulitis of intestine 05/09/2016 Gastroesophageal reflux disease 05/09/2016 Encounters Date Type Department Care Team Description 04/22/2024 Orders Only [facility] [address] [place] [address] Gian Cunha MD Stage 3a chronic kidney disease (HCC); Renal disorder due to type 2 diabetes mellitus <Diabetic nephropathy> (HCC); Hypertensive renal disease; Hyperparathyroidism due to renal insufficiency (HCC) from Last 3 Months Immunizations Name Administration Dates Next Due Pneumococcal Polysaccharide 12/24/2013, 4 Family History Medical History Relation Comments Hypertension Mother Stroke Mother Relation Status Comments Father Mother Social History Tobacco Use Types Packs/Day Years Used Date Smoking Tobacco: Former Smokeless Tobacco: Never Tobacco Cessation:Counseling Given: No Alcohol Use Standard Drinks/Week Comments Yes 0 (1 standard drink = 0.6 oz pure alcohol) Alcoholic Drinks/day: Occasional social drink Comments Unknown Sex and Gender Information Value Date Recorded Sex Assigned at Not on file Legal Sex Female 5:01 PM EST Gender Identity Not on file Sexual Orientation Not on file Last Filed Vital Signs Vital Sign Reading Time Taken Comments Blood Pressure 130/76 07/30/2023 4:27 PM EDT Pulse 75 07/30/2023 4:27 PM EDT Temperature - - Respiratory Rate - - Oxygen Saturation 90% 06/06/2021 4:52 PM EDT Inhaled Oxygen Concentration - - Weight 146 kg (322 lb 6.4 oz) 07/30/2023 4:27 PM EDT Height 162.6 cm (5' 4 ) 10/18/2020 12:21 PM EDT Body Mass Index 55.34 10/18/2020 12:21 PM EDT Plan of Treatment Upcoming Encounters Date Type Department Care Team (Late st Contact Info) Description 07/28/2024 4:00 PM EDT Office Visit [facility] [address] [address] Gian Cunha MD [phone] [address] Health Maintenance Due Date Last Done Comments Breast Cancer Screening 1955 Colorectal Cancer Screening: Annual FOBT 2005 Colorectal Cancer Screening: Colonoscopy 2005 Colorectal Cancer Screening: Sigmoidoscopy 2005 Pneumococcal Vaccine: 65+ Years (3 of 3 - PCV) 02/08/2018 02/08/2017, 12/24/2013, 08/18/2013, Additional history exists Diabetes: Ophthalmology Exam 04/11/2020 Diabetes: Pedal Pulse Checked 04/11/2020 Diabetes: Sensory Foot Exam 04/11/2020 Diabetes: Visual Foot Exam 04/11/2020 Diabetes: Hemoglobin A1C 06/26/2020 03/28/2020 Influenza Vaccine (#1) 2023 0, 02/09/2011, 11/30/2008 Hepatitis B Vaccine Aged Out No longe r eligible based on patient's age to complete this topic Procedures Procedure Name Priority Date/Time Associated Diagnosis Comments BLOOD PANEL (HC) Routine 03/28/2020 12:0 0 AM EST from Last 3 Months or Most Recently Relevant to Health Maintenance Results * (ABNORMAL) Blood Panel (03/28/2020 12:00 AM EST) Sodium 143 137 - 145 mmol/L [facility] Creatinine 1.1 0.70 - 1.30 mg/dl [facility] Cholesterol 98 <200 mg/dl [facility] Triglycerides 62 <150 mg/dl [facility] Hematocrit 48.9 38 - 50 % [facility] Potassium 4.6 3.5 - 5.1 mmol/L [facility] Calcium 9.0 8.4 - 10.2 mg/dl [facility] eGFR 62 >60 ml/min [facility] Hgb 15.4 13.0 - 16.5 g/dl [facility] Hemoglobin A1C 6.5(H) <5 % [facility] Carbon Dioxide (CO2) 24 22 - 30 mmol/L [facility] BUN 23(H) 9 - 20 mg/dl [facility] HDL 44 >40 mg/dl [facility] LDL,Direct 42 <130 mg/dl [facility] Platelets 183 140 - 440 k/uL [facility] eGFR Non- 53(L) >60 ml/min [facility] 03/28/2020 us [facility]version [facility] [id number] LICITED RESULTS Final Result [facility] from Last 3 Months or Most Recently Relevant to Health Maintenance Insurance [facility] Care Teams Cinetechnician Relationship Specialty Start Date End Date Tal Mcknight MD [address] [place] [id number] PCP - General Family Medicine 10/18/20
--- OUTSIDE RECORDS SUMMARY | 2024-04-25 15:45 | XMS_ITS | Clinical Summary ---
Author Organization [facility] Address [address] [place] [address] Phone Care Team Providers Care Associate Professor Of Criminal Justice Name Role Phone Tal Mcknight MD Primary Care Provider [phone]- [phone] Allergies Active Allergy Reactions Criticality Noted Date Comments Amoxicillin Itching,Rash Medium 01/24/2024 Ciprofloxacin Itching,Rash Medium 01/24/2024 Clavulanic Acid Itching,Rash Medium 01/24/2024 Doxycycline Itching,Rash Medium 01/24/2024 Hydrocodone Itching,Rash Medium 01/24/2024 Iodinated Contrast Media Itching,Rash,Wound Medium Levofloxacin Itching,Rash Medium 01/24/2024 Morphine Itching,Rash Medium 01/24/2024 Penicillins Itching,Rash Medium 01/24/2024 Medications fexofenadine (HALLE) 180 mg tablet Take 1 tablet (180 mg total) by mouth 1 (one) time each day. Active fluticasone propionate (FLONASE) 50 mcg/actuation nasal spray Administer 2 sprays into affected nostril(s) 2 (two) times a day. Active albuterol HFA (PROAIR HFA ; PROVENTIL HFA ; VENTOLIN HFA) 90 mcg/actuation inhaler 1 puff by Other route every 4 (four) hours if needed for wheezing or shortness of breath. Active atorvastatin (LIPITOR) 20 mg tablet Take 1 tablet (20 mg total) by mouth 1 (one) time each day. Active calcitrioL (ROCALTROL) 0.5 mcg capsule Take 1 capsule (0.5 mcg total) by mouth 1 (one) time each day. 1 Active cholecalciferol (VITAMIN D-3) 50 mcg (2,000 unit) capsule Take 1 capsule (2,000 Units total) by mouth 1 (one) time each day. Active Wixela Inhub 500-50 mcg/dose diskus inhaler Inhale by mouth. 4 Active furosemide (LASIX) 40 mg tablet Take 1 tablet (40 mg total) by mouth 1 (one) time each day. 3 Active ipratropium (ATROVENT) 42 mcg (0.06 %) nasal spray 4 Active ipratropium-alb uteroL (DUONEB) 0.5-2.5 mg/3 mL nebulizer solution if needed for wheezing or shortness of breath. 4 Active losartan (COZAAR) 50 mg tablet Take 1.5 tablets (75 mg total) by mouth 1 (one) time each day. 4 Active metFORMIN (GLUCOPHAGE) 500 mg tablet Take 2 tablets (1,000 mg total) by mouth 2 (two) times a day. 4 Active mometasone-form oterol (Dulera) 200-5 mcg/actuation inhaler Inhale 2 puffs by mouth 2 (two) times a day. Active Ozempic 0.25 mg or 0.5 mg (2 mg/3 mL) injection pen Inject 0.5 mg under the skin every 7 (seven) days. 4 Active Tezspire 210 mg/1.91 mL (110 mg/mL) injection Inject under the skin every 28 (twenty-eight) days. 4 Active Incruse Ellipta 62.5 mcg/actuation inhalation Inhale 1 puff by mouth 1 (one) time each day. 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 01/24/2024 Disruption of external opera tion (surgical) wound, not elsewhere classified, subsequent encounter 01/24/2024 Acquired absence of other sp ecified parts of digestive tract 01/24/2024 Other specified diabetes mellitus with other ski n ulcer 01/24/2024 Hypertension, essential 01/24/2024 Asthma Encounters Date Type Department Care Team Description 01/24/2024 8:00 AM EST Office Visit [facility] [address] [place] [phone] Wang Rosen MD Non-pressure chronic ulcer of skin of other sites with fat layer exposed ([facility]) (Primary Dx); Disruption of external operation (surgical) wound, not elsewhere classified, subsequent encounter from Last 3 Months Surgical History Surgery Date Site/Laterality Comments COLON SURGERY 03/12/2008 - 03/11/2009 multiple surgeries 4 TONSILLECTOMY as child HAND RT nerve repair Medical History Medical History Date Comments Anemia Asthma COPD (chronic obstructive pulmonary disease) ( [facility]) Diabetes mellitus ([facility]) Hypertension Chronic kidney disease Sepsis ([facility]) 2009 Family History Medical History Relation Name Comments Aneurysm Father No Known Problems Maternal Grandfather No Known Problems Maternal Grandmother Dementia Mother No Known Problems Paternal Grandfather No Known Problems Paternal Grandmother Relation Name Status Comments Father Maternal Grandfather Maternal Grandmother Mother Paternal Grandfather Paternal Grandmother Social History Tobacco Use Types Packs/Day Years Used Date Smoking Tobacco: Former Cigarettes Q uit: 2009 Smokeless Tobacco: Current Passive Exposure Comments:fo rmer- 1 ppd x 40 years Alcohol Use Standard Drinks/Week Comments Yes 0 (1 standard drink = 0.6 oz pur e alcohol) occasional Comments Unknown Sex and Gender Information Value Date Recorded Sex Assigned at Not on file Legal Sex Female 7:24 PM EST Gender Identity Not on file Sexual Orientation Not on file Obstetrics History Last Filed Vital Signs Vital Sign Reading Time Taken Comments Blood Pressure 151/90 01/24/2024 8:16 AM EST Pulse 100 01/24/2024 8:16 AM EST Temperature 36.4 ??C (97.5 ??F) 01/24/2024 8:16 AM ES T Respiratory Rate 18 01/24/2024 8:16 AM EST Oxygen Saturation 93% 01/24/2024 8:16 AM EST Inhaled Oxygen Concentration - - Weight 137 kg (302 lb) 01/24/2024 8:16 AM EST Height 160 cm (5' 3 ) 01/24/2024 8:16 AM EST Body Mass Index 53.5 01/24/2024 8:16 AM EST Plan of Treatment Health Maintenance Due Date Last Done Comments Breast Cancer Screening 1955 Diabetes: Annual GFR (Glomerular Filtration Rate) 1956 Diabetes: Annual Foot Exam 1966 Diabetes: Annual Retina Eye Exam 1966 Zoster Vaccines (1 of 2) 2006 RSV Immunization Patients 60+ Years Old (1 - Risk 60-74 years 1-dose series) 2016 Cholesterol Screening (Lipid Panel) 02/11/2022 Colorectal Cancer Screening: Colonoscopy 02/11/2022 Depression Screening 02/11/2022 Falls Risk Assessment 02/11/2022 Hepatitis C Screening 02/11/2022 Medicare Annual Wellness Visit 02/11/2022 Osteoporosis Screening (Bone Density Screening) 02/11/2022 Social Influencers of Health Screening 02/11/2022 COVID-19 Vaccine ( season) 2023 12/30/2022, 04/18/2020, 04/17/2020, Additional history exists Influenza Vaccine (#1) 2023 , 12/20/2021, 12/15/2020, Additional history exists Diabetes: Annual Urine Albumin-Creatinine Ratio (uACR) 01/24/2024 Diabetes: Blood Sugar Control Test (HGBA1C) 01/24/2024 Hypertension/CHF/CAD Annual BMP Blood Test 01/24/2024 DTaP,Tdap,and Td Vaccines (3 - Td or Tdap) 10/16/2024 10/16/2014, 11/02/2004 MMR Vaccines Aged Out 04/22/2014 No longer eligi ble based on patient's age to complete this topic Pneumococcal Vaccine: 50+ Years Completed 06/27/2022, 02/08/2017, 12/24/2013, Additional history exists HIB Vaccines Aged Out No longer eligi ble based on patient's age to complete this topic HPV Vaccines Aged Out No longer eligi ble based on patient's age to complete this topic Hepatitis A Vaccines Aged Out No long er eligible based on patient's age to complete this topic Hepatitis B Vaccines Aged Out No long er eligible based on patient's age to complete this topic IPV Vaccines Aged Out No longer eligi ble based on patient's age to complete this topic Meningococcal ACWY Vaccine Aged Out N o longer eligible based on patient's age to complete this topic Meningococcal B Vacine Aged Out No lo nger eligible based on patient's age to complete this topic RSV Immunization Patients Under 20 months Aged Out No longer eligible based on patient's age to complete this topic Varicella Vaccines Aged Out No longer eligible based on patient's age to complete this topic Goals Goal Patient Goal Type Associated Problems Recent Progress Patient-Stated? Author Patient and Caregiver Understand Wound Care Education Care Plan Impaired Tissue No Lazara Poole RN Wound volume breakdown reduced by X% by week 4 Care Plan Impaired Tissue No Lazara Poole RN Wound volume breakdown reduced by X% by week 8 Care Plan Impaired Tissue No Lazara Poole RN Wound volume breakdown reduced by X% by week 12 Care Plan Impaired Tissue No Lazara Poole RN Quit using tobacco (cigarettes, smokeless, etc) Care Plan Education needed on impact of smoking on wound No Lazara Poole RN Reduce tobacco use (cigarettes, smokeless, etc) Care Plan Education needed on impact of smoking on wound No Lazara Poole RN Decrease Wound Volume by X% by date (in notes) Care Plan Education needed on impact of smoking on wound No Lazara Poole RN Patient and Caregiver Understand Wound Care Education Care Plan Education needed related to ulceration/compr omised skin integrity. No Lazara Poole RN Additional Health Concerns Active Problems Noted Date Diagnosed Date Impaired Tissue 01/24/2024 Education needed on impact of smoking on wound 1 03/25/2023 Education needed related to ulceration/compromised skin integrity. 01/24/2024 Insurance [employer] Advance Directives Documents on File Type Date Recorded Patient Cupboard Builder Expl anation Health Care Decision (hx) 12/31/2008 AD OLIVA DIRECTIVE Health Care Decision (hx) 12/31/2008 AD OLIVA DIRECTIVE Health Care Decision (hx) 12/31/2008 AD OLIVA DIRECTIVE Health Care Decision (hx) 12/31/2008 AD OLIVA DIRECTIVE Health Care Decision (hx) 12/31/2008 AD OLIVA DIRECTIVE Health Care Decision (hx) 12/31/2008 AD OLIVA DIRECTIVE Health Care Decision (hx) 12/31/2008 AD OLIVA DIRECTIVE Health Care Decision (hx) 12/31/2008 AD OLIVA DIRECTIVE Health Care Decision (hx) 12/31/2008 AD OLIVA DIRECTIVE Health Care Decision (hx) 12/31/2008 AD OLIVA DIRECTIVE Health Care Decision (hx) 12/31/2008 AD OLIVA DIRECTIVE Health Care Decision (hx) 12/31/2008 AD OLIVA DIRECTIVE Health Care Decision (hx) 12/31/2008 AD OLIVA DIRECTIVE Health Care Decision (hx) 12/31/2008 AD OLIVA DIRECTIVE Health Care Decision (hx) 12/31/2008 AD OLIVA DIRECTIVE Health Care Decision (hx) 12/31/2008 AD OLIVA DIRECTIVE Health Care Decision (hx) 12/31/2008 AD OLIVA DIRECTIVE Health Care Decision (hx) 12/31/2008 AD OLIVA DIRECTIVE Health Care Decision (hx) 12/31/2008 AD OLIVA DIRECTIVE Health Care Decision (hx) 12/31/2008 AD OLIVA DIRECTIVE Health Care Decision (hx) 12/31/2008 AD OLIVA DIRECTIVE Health Care Decision (hx) 12/31/2008 AD OLIVA DIRECTIVE Health Care Decision (hx) 12/31/2008 AD OLIVA DIRECTIVE Health Care Decision (hx) 12/31/2008 AD OLIVA DIRECTIVE Health Care Decision (hx) 12/31/2008 AD OLIVA DIRECTIVE Health Care Decision (hx) 12/31/2008 AD OLIVA DIRECTIVE Health Care Decision (hx) 12/31/2008 AD OLIVA DIRECTIVE Health Care Decision (hx) 12/31/2008 AD OLIVA DIRECTIVE Health Care Decision (hx) 12/31/2008 AD OLIVA DIRECTIVE Care Teams Associate Professor Of Criminal Justice Relationship Specialty Start Date End Date Tal Mcknight MD [facility] [address] [place] [address] PCP - General Family Medicine 01/03/24
== END ==
PROVIDERS: PCP Family Medicine; Visit Provider Hospitalist
DX: J18.9 Pneumonia, unspecified organism (principal); R91.1 Solitary pulmonary nodule; J45.40 Moderate persistent asthma, uncomplicated; J41.1 Mucopurulent chronic bronchitis
CPT/HCPCS: 99214

== ENCOUNTER → 2024-04-25 15:43 | Outpatient (BNVA) | payer OTHER, SELFPAY | PROVIDERS: PCP Family Medicine; Visit Provider Hospitalist ==

== ENCOUNTER 2024-09-09 15:28 | Outpatient (AMB) | payer OTHER, SELFPAY ==
[2024-09-09 15:29] VITALS: BP 143/72; PULSE 104; O2SAT 92; BMI 54.0
--- NOTE | 2024-09-09 15:29 | A.OFFVIS_ITS ---
Vital Signs 09/09/24 15:29 Height 5 ft 3 in Weight 305 lb BMI 54.0 BP 143/72 H Blood Pressure Location Lt brachial Position Sitting Pulse 104 H Pulse Source Pulse Oximeter Pulse Oximetry (%) 92 Oxygen Delivery Method Room Air Intake Visit Reasons: Pneumonia Allergies amoxicillin (From Augmentin) Allergy (Severe, Verified 09/09/24 15:39) Rash ciprofloxacin (From Cipro) Allergy (Severe, Verified 09/09/24 15:39) Cramping clavulanic acid (From Augmentin) Allergy (Severe, Verified 09/09/24 15:39) Rash levofloxacin (Levaquin) Allergy (Severe, Verified 09/09/24 15:39) Cramping moxifloxacin (From Avelox) Allergy (Severe, Verified 09/09/24 15:39) Cramping Penicillins Allergy (Severe, Verified 09/09/24 15:39) Rash doxycycline Allergy (Intermediate, Verified 09/09/24 15:39) Rash contrast dye Allergy (Severe, Uncoded 04/25/24 15:48) Blister HPI Comments Details: The patient is a 69-year-old woman with a known history of asthma and significant allergies who was apparently in her usual state health until approximately 3 weeks ago when she suddenly developed shortness of breath while on to supermarket carrying some groceries. In addition to that she felt a low- grade temperature. She had been coughing but nonproductive. Denies chest pain. She was evaluated at the [facility] ED. I do not have the documentation at this time. In part of the workup she did have a CT scan of the chest PE protocol which demonstrated but appears to be a consolidation in the left lower lobe. There he was also found to be hypoxic and she required oxygen. She had a brief stay at [facility]. It is not clear if she received any antibiotics. She has numerous allergies. Ultimately she was discharged with a plan that she was going to start Augmentin as an outpatient. She took 3 doses of Augmentin developed a severe rash. But, not involving her palms no her mucous membranes. She was evaluated by her primary care doctor and also her byproducts supervisor. She was placed on a slow prednisone taper because of the severe rash. The rest is slowly getting better. She was then switched to Bactrim but she did not take can not because she still had the rash. And ultimately she was given a Z-Yariel for 5 days and she feels a little better from a cough standpoint and she has not had any more high temperatures. At no point did she have a temperature greater than 100. The patient has ultimately been discharged on oxygen. It is not clear if she had an ABG but the patient does state that her CO2 was normal. In the office we did undergo a 6 minutes walk test in the patient did desaturate down to 88% with activity suggesting that she still does need the oxygen supplementation with activity. Her symptoms initially were not consistent with pneumonia in the description on the CT scan they appear to be suggesting pneumonia but is not definitive based on their description. Patient has significant lower extremity edema and also has significant tachycardia during the 6 minutes walk test so therefore pulmonary vascular conditions need to be considered. Therefore she will have additional blood work today. Addendum: I did review her blood work and she did have a significantly elevated D-dimer above 700 which is very concerning. Patient is high risk for thromboembolic disease. In addition to that her brain atretic peptide is elevated which could be a negative prognostic finding is some but has thromboembolic disease but also get me that she is volume overloaded. Patient is already on diuretics. 08/06/2020 the patient is here for pulmonary follow-up visit. Since we last spoke she did undergo a CTA due to the fact that her D-dimer was significantly elevated. She did not have any evidence of any thromboembolic disease, however, she had bilateral lower lobe pneumonias. It appears to have progressed from her previous CT scan when she was at [facility] only demonstrating a left basilar infiltrate. This process likely an atypical bacteria organisms. Initially she was on doxycycline and then switched over to Augmentin briefly. Then she went in completed a course of azithromycin. There was a question of a penicillin allergy. However, it appears that the allergy was more to the contrast dye. She did see her byproducts supervisor and did require prolonged course of prednisone to treat the contrast induced allergic skin reaction which resulted in vesicles of her skin. But, not involving her mucous membranes. The patient did require oxygen supplementation during the last visit. At this point the patient will continue to have the oxygen until further evaluation. Patient is to use the oxygen with activity. 11/03/2022 The patient is here for a pulmonary follow-up visit. Overall the patient continues to do very well. She denies any significant shortness of breath. She has no longer using the oxygen. She continues to use her respiratory therapy. In the meantime she needs to maintain a reflux diet. The patient also continue to work with her weight management. The CT scan demonstrated stable findings. no new nodules. Overall, unchanged when compared to 2020. Continue current respiratory regimen. 10/11/2023 the patient is here for pulmonary follow-up visit. She did have a sick visit in our office in August. Subsequently after that she ended up admitted to [facility]. I do not have the details as I do not have the discharge summer. She did have additional imaging while she was there. Now the patient is been stable. She has a better baseline. She is no longer using oxygen. She still has a cough which is productive in nature. Yellowish in color. Denies any fevers or chills. Denies any chest tightness. Seems to be more consistent with chronic bronchitis. Will go and started on azithromycin 3 times a week to treat her chronic bronchitis at this time. I am hopeful that she feels better. Will request the imaging studies in the discharge summary from [facility] to see was already done so we can avoid redundancy. When she starts the azithromycin should get an EKG to make sure that her QT is within normal limits. After 6-8 weeks he can stop the azithromycin. The patient also has underlying pulmonary nodules. Last CT scan was back in the spring. The patient did have a 1 cm pulmonary nodule. Therefore, she should have a close follow-up CT scan. Will have her get a CT scan sometime in 02/29/2024. 02/29/2024 the patient is here for a pulmonary follow-up visit. She has been sickly lately. She has had multiple bouts of pneumonia. Primarily in the right lower lobe area. She just completed a course of cefpodoxime and also azithromycin back in December and she had grown strep pneumo at that point. Then she was vaccinated after that. She came became sick again with worsening respiratory symptoms coughing wheezing. And she went to an urgent care she is our nurse practitioner she was given additional antibiotics. Partially improving her symptoms. Although she feels like she is getting does significant congestion and wheezing. The patient will need some prednisone. In addition to that we did look at her x-ray demonstrating the infrahilar opacity and this is very typical of her previous CT scans. I did recommend bronchoscopy. At this point she is going on a cruise and she would like to avoid any procedures until after the cruise. Therefore, will go ahead and started on clindamycin since she has a lot of allergies. She can start low-dose prednisone to see this provides some relief. In addition to that we talked about potentially microaspiration that could result in recurrent infections. Her street car inspector already checked her immune system and she was not a candidate for immune therapy per report of the patient. However, will go ahead and repeat her CT scan sometime before her cruise and then after the cruise she we can follow-up with me and we can review and see if we need to perform a bronchoscopy. With the now she is going to continue her current respiratory therapy. 04/25/2024 the patient is here for pulmonary follow-up visit. Overall she is doing okay. She still continues to have productive cough. [id number] severity. She did go on her cruise and she did well. The patient did complete a course of antibiotics prior to that trip. She has been off antibiotics since then. She did have a repeat CT scan of the chest which we personally reviewed at rest. Also compared to her previous CT scans from early 2023 and also 2022. She does have a wedge shaped area of scarring with mucus plugging in the posterior segment right upper lobe and also pulmonary nodule in that area. It appears to be about the same. We did talk about considering bronchoscopy. Specially since he is still congested. The last time we sent sputum cultures was positive for strep pneumo and also Haemophilus influenzae. Therefore will be reasonable to perform a bronchoscopy to assess the atelectatic area mucus plugging for both therapeutic and diagnostic purposes. We can also get some deep cultures to make sure that she does not have any smoldering infections. She will call whenever she is ready. Will plan for the . Otherwise we can talk about it further when she comes back in 4 months. For now she is going to get blood work done by her bell maker. The patient did have a very low titer of her pneumococcal 23 titers she did read vaccinated and we will see the results. She will talk to her byproducts supervisor about that. 09/09/2024 the patient is here for pulmonary follow-up visit. Overall she is doing a lot better. Denies any respiratory complaints. Has been using her inhalers as prescribed. She has not had to use his rescue inhaler. She also has been look closely by allergy immunology. Seems to be doing better from that standpoint. The patient has not had any recent illnesses which is reassuring. We did review her last CT scan of the chest that she had back in April 2024 demonstrating pulmonary nodules that have been stable from the last in addition to that evidence of atelectasis and postoperative changes. Will plan to repeat the CAT scan in April 2025 and will follow-up at some point after that. If he has any issues prior to that she will call for an earlier assessment. [facility] Medical History (Updated 09/09/24 @ 21:47 by Archie Coreas MD) Atelectasis Chronic bronchitis Pulmonary nodule Asthma Pneumonia Social History Patient Tobacco Use Status: Former Tobacco user Tobacco use type: Cigarette Years Smoked: 17 Years Review of Systems Const Denies night sweats ENT Denies change in voice, Denies lip swelling, Denies mouth pain, Reports nasal congestion, Reports nasal discharge and Denies tongue swelling Card Denies chest pain, Reports leg edema, Denies palpitations, Reports dyspnea on exertion and Denies paroxysmal nocturnal dyspnea Resp Denies chest congestion, Reports cough, Denies pain on inspiration, Reports dyspnea on exertion and Denies wheezing GI Denies abdominal pain Musc Denies no additional complaints Skin/Breast Denies rash Neuro Denies Neuro-related abnormal movements Psych Denies no additional complaints Endo Denies palpitations Colby/Lymph Denies easy bleeding and Denies lymphadenopathy Aller/Immun Denies lip swelling, Denies tongue swelling and Denies wheezing Physical Exam Vital Signs: Last Vital Signs Pulse 104 H 09/09/24 15:29 BP 143/72 H 09/09/24 15:29 Pulse Ox 92 09/09/24 15:29 Oxygen Delivery Method Room Air 09/09/24 15:29 BMI result Body Mass Index 54.0 Const General: alert Eyes Pupils: Equal, round and reactive pupils present Neck Neck: Yes normal visual inspection, Yes full ROM and Yes no lymphadenopathy Chest Chest palpation & inspection: normal inspection of the chest Resp Auscultation: no crackles, no rales, no rhonchi, no wheezes and diminished lung sounds Cardio Rate: regular rate and tachycardic Rhythm: regular rhythm Heart sounds: S1 normal heart sound present and S2 normal heart sound present GI Palpation (GI): Soft to palpation and nontender Auscultation: normal bowel sounds Neuro Cranial nerves: Yes Equal, round and reactive pupils present Extrem General: No cyanosis and Yes edema Left lower extremity: lower leg Details: erythema Location: of the mid lower leg, tenderness and warmth Assessment & Plan Assessment & Plan (1) Pulmonary nodule: Code(s): R91.1 - Solitary pulmonary nodule Category: Medical (2) Asthma: Code(s): J45.909 - Unspecified asthma, uncomplicated Category: Medical Qualifiers: Asthma complication type: uncomplicated Asthma persistence: persistent Asthma severity: moderate Qualified Code(s): J45.40 - Moderate persistent asthma, uncomplicated (3) Chronic bronchitis: Code(s): J42 - Unspecified chronic bronchitis Category: Medical Qualifiers: Chronic bronchitis type: mucopurulent Qualified Code(s): J41.1 - Mucopurulent chronic bronchitis (4) Atelectasis: Code(s): J98.11 - Atelectasis Category: Medical Plan Continue Wixela and incruse stopped singulair [place] as needed diuresis as tolerated consider bonchoscopy to assess abnormal airspace disease in the RLL F/U 3-4 months Orders: Orders CT chest wo IV con 04/12/25 J18.9 - Pneumonia, unspecified organism, J98.11 - Atelectasis, R91.1 - Solitary pulmonary nodule Coding Level of Care Code Est Pt Level 4 (41651) Diagnoses Pulmonary nodule R91.1 Moderate persistent asthma without complication J45.40 Asthma complication type: uncomplicated Asthma persistence: persistent Asthma severity: moderate Mucopurulent chronic bronchitis J41.1 Chronic bronchitis type: mucopurulent Atelectasis J98.11 Time Spent (min) 16
--- OUTSIDE RECORDS SUMMARY | 2024-09-09 16:12 | XMS_ITS | Clinical Summary ---
Author Organization [facility] Address [address] [place] [phone] Phone Care Team Providers Care Riprap Man Name Role Phone Tal Mcknight MD Primary Care Provider [phone]- [phone] Allergies Active Allergy Reactions Criticality Noted Date [...] 1 (one) time each day Active Umeclidinium [place] (Incruse Ellipta) 62.5 MCG/INH aerosol powder Inhale as directed Active EPINEPHrine (EPIPEN) 0.3 MG/0.3ML injection syringe 1 Active Fluticasone-Shekhar meterol (WIXELA INHUB IN) Inhale Active furosemide (LASIX) 40 MG tablet Take 1 tablet (40 mg total) by mouth 1 (one) time each day 90 tablet 3 3 Active losartan (COZAAR) 50 MG tablet Take 1.5 tablets (75 mg total) by mouth 1 (one) time each day 135 tablet 3 4 Active Semaglutide (OZEMPIC, 1 MG/DOSE, SC) Inject under the skin Active calcitriol (ROCALTROL) 0.5 MCG capsuleIndicati ons:Stage 3a chronic kidney disease (HCC) Take 1 capsule (0.5 mcg total) by mouth every other day 5 Active Active Problems Problem Noted Date Diagnosed Date Stage 3a chronic kidney disease 08/01/2020 Hyperparathyroidism due to renal insufficiency 0 08/01/2020 Hypertensive renal disease 08/01/2020 Renal disorder due to type 2 diabetes mellitus 0 08/01/2020 Asthma-chronic obstructive p ulmonary disease overlap syndrome 06/08/2016 Multiple nodules of lung 06/08/2016 Diverticulitis of intestine 05/09/2016 Gastroesophageal reflux disease 05/09/2016 Encounters Date Type Department Care Team Description 07/28/2024 4:00 PM EDT Office Visit [facility] [address] [id number] Gian Cunha MD Stage 3a chronic kidney disease (HCC) (Primary Dx); Hypertensive renal disease; Renal disorder due to type 2 diabetes mellitus <Diabetic nephropathy> (HCC) from Last 3 Months Immunizations Immunization Administration Dates Next Due Pneumococcal Polysaccharide 12/24/2013, [...] Sign Reading Time Taken Comments Blood Pressure 116/68 07/28/2024 4:07 PM EDT Pulse 75 07/30/2023 4:27 PM EDT Temperature - - Respiratory Rate - - Oxygen Saturation 90% 06/06/2021 4:52 PM EDT Inhaled Oxygen Concentration - - Weight 136 kg (300 lb 9.6 oz) 07/28/2024 4:07 PM EDT Height 162.6 cm (5' 4 ) 10/18/2020 12:21 PM EDT Body Mass Index 51.6 10/18/2020 12:21 PM EDT Plan of Treatment Upcoming Encounters Date Type Department Care Team (Late st Contact Info) Description 02/13/2025 11:30 AM EST Office Visit [facility] [address] [phone] Gian Cunha MD [address] [address] Health Maintenance Due Date Last Done Comments Breast Cancer Screening 1955 Colorectal Cancer Screening: Annual FOBT 2005 Colorectal Cancer Screening: Colonoscopy 2005 Colorectal Cancer Screening: Sigmoidoscopy 2005 Diabetes: Ophthalmology Exam 04/11/2020 Diabetes: Pedal Pulse Checked 04/11/2020 Diabetes: Sensory Foot Exam 04/11/2020 Diabetes: Visual Foot Exam 04/11/2020 Diabetes: Hemoglobin A1C 06/26/2020 03/28/2020 Influenza Vaccine (Season Ended) 2024 12/14/2019, 02/09/2011, 11/30/2008 Pneumococcal Vaccine: 50+ Years (3 of 3 - PCV) 01/26/2025 01/27/2024, 02/08/2017, 12/24/2013, Additional history exists Pneumococcal Vaccine: Peds (0 to 5 Years) and At-Risk Patients (6 to 49 Years) Discontinued 01/27/2024, 02/08/2017, 12/24/2013, Additional history exists Hepatitis B Vaccine Aged Out No longe r eligible based on patient's age to complete this topic Procedures Procedure Name Priority Date/Time Associated Diagnosis Comments PROTEIN / CREATININE RATIO, URINE Routine 07/19/2024 2:02 PM EDT RP10+2AC (HC) Routine 07/19/2024 2:02 PM EDT BLOOD PANEL (HC) Routine 03/28/2020 12:0 0 AM EST from Last 3 Months or Most Recently Relevant to Health Maintenance Results * (ABNORMAL) RP10+2AC (07/19/2024 2:02 PM EDT) [facility] Glucose 87 70 - 99 mg/dL [facility] Uric Acid 7.0 3.0 - 7.2 mg/dL [facility] Comment:Therapeutic target f or gout patients: <6.0 BUN 30(H) 8 - 27 mg/dL [facility] Creatinine 1.25(H) 0.57 - 1.00 mg/dL [facility] eGFR CKD-EPI CR 2020 47(L) >59 mL/min/1.7 3 [facility] BUN/Creatinine Ratio 24 12 - 28 [facility] Sodium 144 134 - 144 mmol/L [facility] Potassium 4.5 3.5 - 5.2 mmol/L [facility] Chloride 105 96 - 106 mmol/L [facility] Bicarbonate (CO2) 24 20 - 29 mmol/L [facility] Anion Gap 15.0 10.0 - 18.0 mmol/L [facility] Calcium 9.5 8.7 - 10.3 mg/dL [facility] Phosphorus 3.2 3.0 - 4.3 mg/dL [facility] Albumin 4.0 3.9 - 4.9 g/dL [facility] Total Protein 7.4 6.0 - 8.5 g/dL [facility] Globulin 3.4 1.5 - 4.5 g/dL [facility] 07/19/2024 2:02 PM EDT 07/19/2024 us Gian Cunha MD LAB [id number] LICITED RESULTS Final Result [facility] [address] [place] [address] * Protein, Total, Random Urine w/Creatinine (Protein/Creat Ratio) (07/19/2024 2:02 PM EDT) Creatinine, Ur 106.7 Not Estab. mg/dL [facility] Protein, Ur 16.9 Not Estab. mg/dL [facility] Urine Protein/Creatin ine Ratio 158 0 - 200 mg/g creat [facility] 07/19/2024 2:02 PM EDT 07/19/2024 us Gian Cunha MD LAB URINE ORDERABLES Final Resu lt Performing Organization Address City/[facility]/ZIP Co de Phone Number [facility] [address] [place] [address] * (ABNORMAL) Blood Panel (03/28/2020 12:00 AM [...] ml/min PVNMA 03/28/2020 us Rtama Conversion LAB [id number] LICITED RESULTS Final Result PVNMA from Last 3 Months or Most Recently Relevant to Health [place] [id number] [place] [id number] Care Teams Riprap Man Relationship Specialty Start Date End Date Tal Mcknight MD [facility] [place] [place] [phone] PCP - General Family Medicine 10/18/20
--- OUTSIDE RECORDS SUMMARY | 2024-09-09 16:12 | XMS_ITS | Clinical Summary ---
Author Organization [facility] Address [address] [place] [address] Phone Care Team Providers Care Recovery Operator Name Role Phone Tal Mcknight MD Primary Care Provider +1- [phone] Allergies Active Allergy Reactions Criticality Noted Date [...] of other sites with fat layer exposed (CMS/HCC V24, CMS/HCC V28) 01/24/2024 Disruption of external opera tion (surgical) wound, not elsewhere classified, subsequent encounter 01/24/2024 Acquired absence of other sp ecified parts of digestive tract 01/24/2024 Other specified diabetes jose litus with other skin ulcer [place] [place] [facility] [place]28) 01/24/2024 Hypertension, essential 01/24/2024 Asthma Surgical History Surgery Date Site/Laterality Comments COLON SURGERY 03/12/2008 - 03/11/2009 multiple surgeries 4 TONSILLECTOMY as child HAND RT nerve repair Medical History Medical History Date Comments Anemia Asthma COPD (chronic obstructive pulmonary disease) ([facility] V24, [facility] V28) Diabetes mellitus ([facility] [place]24, [facility] V28) Hypertension Chronic kidney disease Sepsis ([facility] [place], [facility] V28) 2008 Family History Medical History Relation Name Comments [...] 100 01/24/2024 8:16 AM EST Temperature 36.4 C (97.5 F) 01/24/2024 8:16 AM EST Respiratory Rate 18 01/24/2024 8:16 AM EST [...] Exam 1966 Zoster Vaccines (1 of 2) 07/15/1975 RSV Immunization Adult Patients (1 - Risk 60-74 years 1-dose series) 2016 Cholesterol Screening (Lipid Panel) 02/11/2022 Colorectal Cancer Screening: Colonoscopy 02/11/2022 Depression Screening 02/11/2022 Falls Risk Assessment 02/11/2022 Hepatitis C Screening 02/11/2022 Medicare Annual Wellness Visit 02/11/2022 Osteoporosis Screening (Bone Density Screening) 02/11/2022 Social Influencers of Health Screening 02/11/2022 COVID-19 Vaccine ( season) 2023 12/30/2022, 04/18/2020, 04/17/2020, Additional history exists Diabetes: Annual Urine Albumin-Creatinine Ratio (uACR) 01/24/2024 Diabetes: Blood Sugar Control Test (HGBA1C) 01/24/2024 Hypertension/CHF/CAD Annual BMP Blood Test 01/24/2024 DTaP,Tdap,and Td Vaccines (3 - Td or Tdap) 10/16/2024 10/16/2014, 11/02/2004 Influenza Vaccine (Season Ended) 2024 12/12/2022, 12/20/2021, 12/15/2020, Additional history exists MMR Vaccines Aged Out 04/22/2014 No longer [...] age to complete this topic Meningococcal B Vaccine Aged Out No l onger eligible based on patient's age to complete [...] 01/24/2024 Insurance [employer] MEDICARE Advance Directives Documents on File Type Date Recorded Patient Physician/Ophthalmologist Expl anation Health Care Decision (hx) 12/31/2008 [...] DIRECTIVE Health Care Decision (hx) 12/31/2008 AD OLIAV DIRECTIVE Health Care Decision (hx) 12/31/2008 AD [...] (hx) 12/31/2008 AD OLIVA DIRECTIVE Care Teams Recovery Operator Relationship Specialty Start Date End Date Tal Mcknight MD [facility] Emmanuel [address] [place] [id number] PCP - General Family Medicine 01/03/24
== END 2024-09-09 15:52 | disposition home or self-care (01) ==
LOC: HO.HPS 15:28
PROVIDERS: PCP Family Medicine; Visit Provider Hospitalist
DX: R91.1 Solitary pulmonary nodule (principal); J45.40 Moderate persistent asthma, uncomplicated; J41.1 Mucopurulent chronic bronchitis; J98.11 Atelectasis
CPT/HCPCS: 99214

== ENCOUNTER 2025-01-20 15:27 | Outpatient (AMB) | payer OTHER, SELFPAY ==
[2025-01-20 15:28] VITALS: BP 136/66; PULSE 90; O2SAT 94; BMI 56.2
--- NOTE | 2025-01-20 15:28 | MHC.OFFVIS ---
Vital Signs 01/20/25 15:28 Height 5 ft 3 in Weight 317 lb 7.45 oz BMI 56.2 BP 136/66 Blood Pressure Location Lt radial Position Sitting Pulse 90 Pulse Source Pulse Oximeter Pulse Oximetry (%) 94 Oxygen Delivery Method Room Air Intake Visit Reasons: pneumonia Boat[employer] Required: No Accompanied by: Self / Same As Patient Allergies amoxicillin (From Augmentin) Allergy (Severe, Verified 01/20/25 15:32) Rash ciprofloxacin (From Cipro) Allergy (Severe, Verified 01/20/25 15:32) Cramping clavulanic acid (From Augmentin) Allergy (Severe, Verified 01/20/25 15:32) Rash levofloxacin (Levaquin) Allergy (Severe, Verified 01/20/25 15:32) Cramping moxifloxacin (From Avelox) Allergy (Severe, Verified 01/20/25 15:32) Cramping Penicillins Allergy (Severe, Verified 01/20/25 15:32) Rash doxycycline Allergy (Intermediate, Verified 01/20/25 15:32) Rash contrast dye Allergy (Severe, Uncoded 04/25/24 15:48) Blister HPI Comments Details: The patient is a 69-year-old woman with a known history of asthma and significant allergies who was apparently in her usual state health until approximately 3 weeks ago when she suddenly developed shortness of breath while on to supermarket carrying some groceries. In addition to that she felt a low-grade temperature. She had been coughing but nonproductive. Denies chest pain. She was evaluated at the [facility] ED. I do not have the documentation at this time. In part of the workup she did have a CT scan of the chest PE protocol which demonstrated but appears to be a consolidation in the left lower lobe. There he was also found to be hypoxic and she required oxygen. She had a brief stay at [facility]. It is not clear if she received any antibiotics. She has numerous allergies. Ultimately she was discharged with a plan that she was going to start Augmentin as an outpatient. She took 3 doses of Augmentin developed a severe rash. But, not involving her palms no her mucous membranes. She was evaluated by her primary care doctor and also her cab station attendant. She was placed on a slow prednisone taper because of the severe rash. The rest is slowly getting better. She was then switched to Bactrim but she did not take can not because she still had the rash. And ultimately she was given a Z-Yariel for 5 days and she feels a little better from a cough standpoint and she has not had any more high temperatures. At no point did she have a temperature greater than 100. The patient has ultimately been discharged on oxygen. It is not clear if she had an ABG but the patient does state that her CO2 was normal. In the office we did undergo a 6 minutes walk test in the patient did desaturate down to 88% with activity suggesting that she still does need the oxygen supplementation with activity. Her symptoms initially were not consistent with pneumonia in the description on the CT scan they appear to be suggesting pneumonia but is not definitive based on their description. Patient has significant lower extremity edema and also has significant tachycardia during the 6 minutes walk test so therefore pulmonary vascular conditions need to be considered. Therefore she will have additional blood work today. Addendum: I did review her blood work and she did have a significantly elevated D-dimer above 700 which is very concerning. Patient is high risk for thromboembolic disease. In addition to that her brain atretic peptide is elevated which could be a negative prognostic finding is some but has thromboembolic disease but also get me that she is volume overloaded. Patient is already on diuretics. 08/06/2020 the patient is here for pulmonary follow-up visit. Since we last spoke she did undergo a CTA due to the fact that her D-dimer was significantly elevated. She did not have any evidence of any thromboembolic disease, however, she had bilateral lower lobe pneumonias. It appears to have progressed from her previous CT scan when she was at [facility] only demonstrating a left basilar infiltrate. This process likely an atypical bacteria organisms. Initially she was on doxycycline and then switched over to Augmentin briefly. Then she went in completed a course of azithromycin. There was a question of a penicillin allergy. However, it appears that the allergy was more to the contrast dye. She did see her cab station attendant and did require prolonged course of prednisone to treat the contrast induced allergic skin reaction which resulted in vesicles of her skin. But, not involving her mucous membranes. The patient did require oxygen supplementation during the last visit. At this point the patient will continue to have the oxygen until further evaluation. Patient is to use the oxygen with activity. 11/03/2022 The patient is here for a pulmonary follow-up visit. Overall the patient continues to do very well. She denies any significant shortness of breath. She has no longer using the oxygen. She continues to use her respiratory therapy. In the meantime she needs to maintain a reflux diet. The patient also continue to work with her weight management. The CT scan demonstrated stable findings. no new nodules. Overall, unchanged when compared to 2020. Continue current respiratory regimen. 10/11/2023 the patient is here for pulmonary follow-up visit. She did have a sick visit in our office in August. Subsequently after that she ended up admitted to [facility]. I do not have the details as I do not have the discharge summer. She did have additional imaging while she was there. Now the patient is been stable. She has a better baseline. She is no longer using oxygen. She still has a cough which is productive in nature. Yellowish in color. Denies any fevers or chills. Denies any chest tightness. Seems to be more consistent with chronic bronchitis. Will go and started on azithromycin 3 times a week to treat her chronic bronchitis at this time. I am hopeful that she feels better. Will request the imaging studies in the discharge summary from [facility] to see was already done so we can avoid redundancy. When she starts the azithromycin should get an EKG to make sure that her QT is within normal limits. After 6-8 weeks he can stop the azithromycin. The patient also has underlying pulmonary nodules. Last CT scan was back in the spring. The patient did have a 1 cm pulmonary nodule. Therefore, she should have a close follow-up CT scan. Will have her get a CT scan sometime in 02/29/2024. 02/29/2024 the patient is here for a pulmonary follow-up visit. She has been sickly lately. She has had multiple bouts of pneumonia. Primarily in the right lower lobe area. She just completed a course of cefpodoxime and also azithromycin back in December and she had grown strep pneumo at that point. Then she was vaccinated after that. She came became sick again with worsening respiratory symptoms coughing wheezing. And she went to an urgent care she is our nurse practitioner she was given additional antibiotics. Partially improving her symptoms. Although she feels like she is getting does significant congestion and wheezing. The patient will need some prednisone. In addition to that we did look at her x-ray demonstrating the infrahilar opacity and this is very typical of her previous CT scans. I did recommend bronchoscopy. At this point she is going on a cruise and she would like to avoid any procedures until after the cruise. Therefore, will go ahead and started on clindamycin since she has a lot of allergies. She can start low-dose prednisone to see this provides some relief. In addition to that we talked about potentially microaspiration that could result in recurrent infections. Her calender supervisor already checked her immune system and she was not a candidate for immune therapy per report of the patient. However, will go ahead and repeat her CT scan sometime before her cruise and then after the cruise she we can follow-up with me and we can review and see if we need to perform a bronchoscopy. With the now she is going to continue her current respiratory therapy. 04/25/2024 the patient is here for pulmonary follow-up visit. Overall she is doing okay. She still continues to have productive cough. [id number] severity. She did go on her cruise and she did well. The patient did complete a course of antibiotics prior to that trip. She has been off antibiotics since then. She did have a repeat CT scan of the chest which we personally reviewed at rest. Also compared to her previous CT scans from early 2023 and also 2022. She does have a wedge shaped area of scarring with mucus plugging in the posterior segment right upper lobe and also pulmonary nodule in that area. It appears to be about the same. We did talk about considering bronchoscopy. Specially since he is still congested. The last time we sent sputum cultures was positive for strep pneumo and also Haemophilus influenzae. Therefore will be reasonable to perform a bronchoscopy to assess the atelectatic area mucus plugging for both therapeutic and diagnostic purposes. We can also get some deep cultures to make sure that she does not have any smoldering infections. She will call whenever she is ready. Will plan for the . Otherwise we can talk about it further when she comes back in 4 months. For now she is going to get blood work done by her doggy daycare activities director. The patient did have a very low titer of her pneumococcal 23 titers she did read vaccinated and we will see the results. She will talk to her cab station attendant about that. 09/09/2024 the patient is here for pulmonary follow-up visit. Overall she is doing a lot better. Denies any respiratory complaints. Has been using her inhalers as prescribed. She has not had to use his rescue inhaler. She also has been look closely by allergy immunology. Seems to be doing better from that standpoint. The patient has not had any recent illnesses which is reassuring. We did review her last CT scan of the chest that she had back in April 2024 demonstrating pulmonary nodules that have been stable from the last in addition to that evidence of atelectasis and postoperative changes. Will plan to repeat the CAT scan in April 2025 and will follow-up at some point after that. If he has any issues prior to that she will call for an earlier assessment. 01/20/2025 the patient is here for pulmonary follow-up visit. Overall the patient has been doing well. Although she was recently exposed to dust and she started developing a cough. She does have chest congestion. She continues on the Wixela and Spiriva. She is looking to switch insurance specially since she is now holding up for Medicare. And she is looking for a secondary can can cover her prescriptions. We did talk about alternative therapies. The patient also has chronic bronchitis. Will try to minimize use of prednisone and I believe Daliresp will be a very good option for her for her chronic bronchitis and frequent exacerbations. Therefore will go ahead and send her a prescription to the pharmacy with a low dose so she can get used to it and if she does tolerate it we can send her the full dose. The patient also will continue with the current respiratory therapy as prescribed by although I will increase her Spiriva to the higher dose. She does have a CAT scan scheduled for sometime in April for the pulmonary nodules and atelectasis. And will follow-up with her after that. If any issues arise prior to that she can always call for an earlier assessment and recommendations. [facility] Medical History (Updated 01/20/25 @ 20:49 by Archie Coreas MD) Asthma-COPD overlap syndrome Atelectasis Chronic bronchitis Pulmonary nodule Asthma Pneumonia Social History Patient Tobacco Use Status: Former Tobacco user Tobacco use type: Cigarette Years Smoked: 17 Years Review of Systems Const Denies night sweats ENT Denies change in voice, Denies lip swelling, Denies mouth pain, Reports nasal congestion, Reports nasal discharge and Denies tongue swelling Card Denies chest pain, Reports leg edema, Denies palpitations, Reports dyspnea on exertion and Denies paroxysmal nocturnal dyspnea Resp Denies chest congestion, Reports cough, Denies pain on inspiration, Reports dyspnea on exertion and Denies wheezing GI Denies abdominal pain Musc Denies no additional complaints Skin/Breast Denies rash Neuro Denies Neuro-related abnormal movements Psych Denies no additional complaints Endo Denies palpitations Colby/Lymph Denies easy bleeding and Denies lymphadenopathy Aller/Immun Denies lip swelling, Denies tongue swelling and Denies wheezing Physical Exam Vital Signs: Last Vital Signs Pulse 90 01/20/25 15:28 BP 136/66 01/20/25 15:28 Pulse Ox 94 01/20/25 15:28 Oxygen Delivery Method Room Air 01/20/25 15:28 BMI result Body Mass Index 56.2 Const General: alert Eyes Pupils: Equal, round and reactive pupils present Neck Neck: Yes normal visual inspection, Yes full ROM and Yes no lymphadenopathy Chest Chest palpation & inspection: normal inspection of the chest Resp Auscultation: no crackles, no rales, rhonchi, no wheezes and diminished lung sounds Cardio Rate: regular rate and tachycardic Rhythm: regular rhythm Heart sounds: S1 normal heart sound present and S2 normal heart sound present GI Palpation (GI): Soft to palpation and nontender Auscultation: normal bowel sounds Neuro Cranial nerves: Yes Equal, round and reactive pupils present Extrem General: No cyanosis and Yes edema Left lower extremity: lower leg Details: erythema Location: of the mid lower leg, tenderness and warmth Assessment & Plan Assessment & Plan (1) Pulmonary nodule: Code(s): R91.1 - Solitary pulmonary nodule Category: Medical (2) Asthma: Code(s): J45.909 - Unspecified asthma, uncomplicated Category: Medical Qualifiers: Asthma complication type: uncomplicated Asthma persistence: persistent Asthma severity: moderate Qualified Code(s): J45.40 - Moderate persistent asthma, uncomplicated (3) Chronic bronchitis: Code(s): J42 - Unspecified chronic bronchitis Category: Medical Qualifiers: Chronic bronchitis type: mucopurulent Qualified Code(s): J41.1 - Mucopurulent chronic bronchitis (4) Atelectasis: Code(s): J98.11 - Atelectasis Category: Medical (5) Asthma-COPD overlap syndrome: Code(s): J44.9 - Chronic obstructive pulmonary disease, unspecified Category: Medical Plan Continue Wixela 500 increase Spiriva 2.25 start Daliresp 250mcg-->500mcg [place] as needed diuresis as tolerated CT chest 04/2025 F/U 3-4 months Medications: New tiotropium bromide 2.5 mcg/actuation (Spiriva Respimat) 2 puffs inhalation DAILY 1 ea 11RF 30 days roflumilast (Daliresp) 250 mcg PO DAILY 30 tabs 11RF 30 days J44.9 - Chronic obstructive pulmonary disease, unspecified Coding Level of Care Code Est Pt Level 4 (67094) Complex EM visit Add On G2211 Diagnoses Pulmonary nodule R91.1 Moderate persistent asthma without complication J45.40 Asthma complication type: uncomplicated Asthma persistence: persistent Asthma severity: moderate Mucopurulent chronic bronchitis J41.1 Chronic bronchitis type: mucopurulent Atelectasis J98.11 Asthma-COPD overlap syndrome J44.9 Time Spent (min) 16
== END 2025-01-20 15:57 | disposition home or self-care (01) ==
LOC: HO.HPS 15:28
PROVIDERS: PCP Family Medicine; Visit Provider Hospitalist
DX: R91.1 Solitary pulmonary nodule (principal); J45.40 Moderate persistent asthma, uncomplicated; J41.1 Mucopurulent chronic bronchitis; J98.11 Atelectasis; J44.9 Chronic obstructive pulmonary disease, unspecified
CPT/HCPCS: 99214